=== PATIENT | male | born 1945 | race Caucasian/White ===

== ENCOUNTER → 2017-01-25 | Outpatient (CLI) | payer MEDICARE, OTHER ==
--- NOTE | 2017-01-25 15:38 | KCIC ---
PROCEDURE Two-view lumbar spine dated 01/25/2017. HISTORY Low back pain left leg pain weakness. TECHNIQUE AP and lateral views obtained. COMPARISON None. FINDINGS Five nonrib-bearing vertebral levels. Vertebral body heights are maintained. Sagittal alignment is anatomic. There is multilevel moderate to severe disc space narrowing. Moderate to severe arthrosis lower lumbar apophyseal joints. Moderate hypertrophic change of the superior and inferior endplates throughout. IMPRESSION - No acute radiographic abnormality. - Moderate to severe multilevel lumbar spondylosis. Electronically signed by: Josias Payton (Jan 25, 2017 15:37:41)
== END | disposition home or self-care (01) ==
LOC: KCIC 15:04
PROVIDERS: ATTEND Neurological Surgery
DX: M47.896 Other spondylosis, lumbar region (principal); M54.5 Low back pain; M79.605 Pain in left leg; Z91.81 History of falling; R53.1 Weakness
CPT/HCPCS: 72100

== ENCOUNTER → 2017-02-07 | Outpatient (CLI) | payer MEDICARE, OTHER ==
[~2017-02-07] MED LIST: AMLO5TAB2 PO; ASPI-482 PO; CHOL100017 PO; DOCU-27 PO; DOXA8TAB59 PO; DULO60CA6 PO; HYDR-2666 PO; HYDR25TA9 PO; LACT1CAP29 PO; LISI40TA PO; METF-620 PO; METH750T2 PO; OMEG10005 PO; OXYC1TAB7 PO
[2017-02-07 15:05] LABS: BASO % 1 % (0-3); EOS % 2 % (0-3); HEMATOCRIT 41.6 % (39.0-53.0); HEMOGLOBIN 13.6 g/dL (13.0-17.5); LYMPH # 1.5 x10^3/uL (1.0-4.8); LYMPH % 19 % (24-48); MEAN CORPUSCULAR HEMOGLOBIN 30 pg (25-35); MEAN CORPUSCULAR HGB CONC 33 g/dL (31-37); MEAN CORPUSCULAR VOLUME 92 fL (79-100); MONO % 8 % (0-9); NEUT % 70 % (31-73); PLATELET COUNT 250 x10^3/uL (140-400); RED BLOOD COUNT 4.51 x10^6/uL (4.30-5.70); RED CELL DISTRIBUTION WIDTH 14.5 % (11.5-14.5)
[2017-02-07 15:29] LABS: ALBUMIN 3.8 g/dL (3.4-5.0); ALBUMIN/GLOBULIN RATIO 1.2 (1.0-1.7); CALCIUM 9.4 mg/dL (8.5-10.1); CREATININE 1.2 mg/dL (0.7-1.3); GFR 59.3; POTASSIUM 4.7 mmol/L (3.5-5.1); TOTAL BILIRUBIN 0.4 mg/dL (0.2-1.0); TOTAL PROTEIN 7.1 g/dL (6.4-8.2)
--- NOTE | 2017-02-11 14:53 | HP ---
ADMIT DATE: DICTATED BY: Kalyan Burgess RN. DATE OF SURGERY: 02/16/2017 HISTORY OF PRESENT ILLNESS: The patient is a pleasant 71-year-old man who is having difficulty with low back pain and pain which radiates into his lower extremities as well as episodes of weakness and falling. He notes pain in the lower back which radiates into the anterior thighs. He notes numbness in both of his feet. He says his legs buckle, and he falls about once per week. He feels as though his left leg is in general weak and causing the falling. He states he has had back pain for about 15 years, and it became severe beginning in November 2016. Standing or twisting increases his pain. He takes Aleve and Powell. He has had epidural steroid injections in the past as well as physical therapy and chiropractic treatment none of which gave him long-lasting relief. He feels very unsteady, and he uses a walker. PAST MEDICAL HISTORY: Artificial joints and knees, prostate cancer, heart trouble or disease, cardiac bypass surgery, hypertension, radiation treatment, shingles, sleep apnea, and diabetes. PAST SURGICAL HISTORY: Heart catheterization in 2009, CABG x3 in 2009, left knee replacement in 2012, right knee replacement in 2014, and eye surgery in 2016. FAMILY HISTORY: Alzheimer's, diabetes, heart problems, and hypertension. SOCIAL HISTORY: Retired. . Exercises weekly. Denies substance abuse. Denies current tobacco use. Smoked 1 pack per day for 40 years, but quit greater than 10 years ago. Drinks alcohol one to two times per year. Drinks coffee daily. ALLERGIES: No known drug allergies. CURRENT MEDICATIONS: Metformin, vitamin D, aspirin, lisinopril, hydrochlorothiazide, Colace, probiotic, Aleve, [place], ____, amlodipine, doxazosin, and Cymbalta. REVIEW OF SYSTEMS: A 12-point review of systems was obtained and is noncontributory except for that mentioned above. PHYSICAL EXAMINATION: GENERAL APPEARANCE: Alert, pleasant, in no acute distress. HEAD: Normocephalic and atraumatic. SKIN: Warm and dry. MUSCULOSKELETAL: Lumbar paraspinal muscle bulk is normal, restricted range of motion of lumbar spine, [id number] tenderness of lower lumbar spine with palpation, and normal range of motion of the lower extremities bilaterally. EXTREMITIES: No clubbing, cyanosis, or edema. NEUROLOGIC: Alert and oriented x 3, normal recent and remote memory. Strength was 4+/5 hip flexors bilaterally, 4/5 left quadriceps, 4+/5 right quadriceps, plantar and dorsiflexion were 4+/5. Sensory was intact to light touch in bilateral lower extremities except for decreased involving the distal legs and feet bilaterally. Reflexes were trace at the knees and absent at the ankles bilaterally. Negative straight leg raising bilaterally, unsteady gait with the use of a walker. IMAGING REVIEWED: I reviewed a lumbar MRI scan. On that study, there is moderate stenosis at L1-L2, severe stenosis at L2-L3, severe stenosis at L3-L4, and severe stenosis at L4-L5. There is a small right synovial cyst present with some narrowing of the right side of his spinal canal at L5-S1. I also reviewed a thoracic MRI scan. The principal abnormality here is that at T11-T12, there is disk bulging, plus large left-sided synovial cyst which is associated with severe central canal stenosis. ASSESSMENT: He has multi-level disease and a synovial cyst at T10, T11, and T12. He is having difficulty ambulating. He is going to require surgery. I am obtaining plain lumbar spine films. Unfortunately, his thoracic MRI scan was not available for me to review today, so I am obtaining that study. I suspect he is going to require a left-sided approach at T11-T12 with removal of synovial cyst and decompression of the distal spinal cord. At L1-L2 through L4-L5, will require lumbar laminectomies. I suspect that my preference is going to be to perform a right direct approach and an indirect left decompression to try and preserve as much of this overall structure of the spinous possible. He does appear to have an element of degenerative scoliosis on the MRI scan. I will have plain films of lumbar spine performed to evaluate more. RAYMOND MEYER MD DR: ELEUTERIO/everardo JOB#: [id number] / [id number]
== END | disposition home or self-care (01) ==
LOC: SURGPAT 16:08
PROVIDERS: ATTEND Neurological Surgery
DX: Z01.812 Encounter for preprocedural laboratory examination (principal)
CPT/HCPCS: 36415; 80053; 83036; 85027; 87641

== ENCOUNTER → 2018-07-04 | Outpatient (CLI) | payer MEDICARE, OTHER ==
[2017-02-19 08:58] VITALS: BP 109/45
[~2018-07-04] MED LIST changes: -AMLO5TAB2 PO; +AMLO5TAB7 PO; +DOCU-109 PO; -DOCU-27 PO; -HYDR-2666 PO; +HYDR-2758 PO; +IOHEXOL 180 MG/ML 10 ML VIAL. ONE; +LIDOCAINE 2% PF 2ML VIAL. ONE; +LISI-130 PO; -LISI40TA PO; -METF-620 PO; +METF10007 PO; +[UNRECOGNIZED DRUG - OTHER]; +methylPREDNISolone ACETATE 40 MG/ML VIAL. ONE; +methylPREDNISolone ACETATE 80 MG/ML VIAL. ONE
--- NOTE | 2018-07-04 12:51 | PAIN ---
DATE OF SERVICE: 07/04/2018 CHIEF COMPLAINT: Low back pain. HISTORY OF PRESENT ILLNESS: This is a 73-year-old male who presents with history of pain in the low back for about a year and a half. The patient has had lumbar laminectomy as well as thoracic laminectomy for synovial cyst and is trying to avoid further surgery. The patient reports significant pain in the low back itself, some radiation into the bilateral lower extremities, mostly in the lateral and posterior aspects of the hip and thighs, but the patient reports they can be significantly enough to where he will actually fall down from the pain and has some fatigability in bilateral lower extremities with walking more than about 10-15 minutes. The patient reports the pain is becoming more constant, sharp, throbbing, aching, tingling in some aspects of the back, cramping and burning, worse with walking, worse with standing, better with sitting or lying down, does not awaken him from sleep significantly, does not affect his bowel or bladder control, does affect his ability to walk significantly. He usually uses a cane and holds it in his right hand. The patient is taking hydrocodone as well, which does help by about 50%. The patient has had physical therapy, counseling, chiropractic treatment as well as doing exercises and continues to do the exercises and therapies at this time. No other modalities have been performed currently. The patient did have an MRI scan of the lumbar spine dated 06/09/2018 showing postoperative changes with multilevel central and neural foraminal stenosis at L2-L3, L3-L4, L4-L5 and L5-S1. L4-L5 shows persistent severe central stenosis with a broad-based disk osteophyte complex and severe bilateral neural foraminal stenosis persisting as well with previous right hemilaminectomy changes. The patient reports a disability rate from 0-10, 10 being the worst, as a 9 with recreation and occupation, 7 with social activity, 6 with sexual behavior, 2 with self-care and 1 with life support activities. The patient reports no complete loss of motor function, but again significant fatigability of lower extremities with walking. PAST MEDICAL HISTORY: Significant for type 2 diabetes, hypertension, arthritis, peripheral neuropathy from the diabetes. PAST SURGICAL HISTORY: Includes lumbar laminectomy in 02/2017, coronary artery bypass graft in 2009, right knee replaced in 2014, left knee in 2012 and cataract extractions bilaterally. CURRENT MEDICATIONS: Include Aleve, amlodipine, doxazosin, Cymbalta, omega XL, Colax probiotic, hydrochlorothiazide, lisinopril, metformin, vitamin D, baby aspirin daily. ALLERGIES: No known drug allergies. FAMILY HISTORY: Significant for diabetes. SOCIAL HISTORY: The patient does not drink alcohol, does not smoke, does not use any illegal, illicit or recreational drugs. He is and lives with his spouse. 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 REVIEW OF SYSTEMS: The patient's review of systems is positive for those items mentioned in history of present illness. All systems reviewed and otherwise negative. It is complete, full, well documented on the patient's chart. PHYSICAL EXAMINATION: VITAL SIGNS: The patient's blood pressure is 138/49, pulse 58, respirations 18, temperature 97.9 degrees Fahrenheit, height is 5 feet 10 inches, weight is 297 pounds. GENERAL: The patient is awake, alert, oriented, appropriate, very pleasant demeanor. HEENT: Head is normocephalic, atraumatic. Extraocular movements are intact, symmetrical. Oral cavity: Mucous membranes moist and pink. Dentition is intact. NECK: Shows anterior throat supple without palpable lymphadenopathy noted. Swallow reflex is symmetrical. CHEST: Shows normal on inspection. Breath sounds clear to auscultation bilaterally. HEART: Shows S1, S2 clear. No murmurs auscultated. ABDOMEN: Obese, soft, nontender, nondistended. No palpable organomegaly is noted. No rebound or guarding demonstrated. BACK: Shows spine grossly in the midline, normal appearing thoracic kyphosis and some flattening of lumbar lordotic curvature with well-healed surgical scarring from the thoracic into the lumbar distribution in the midline. Paraspinous muscles show symmetrical on inspection throughout the thoracic and lumbar distributions. With palpation show some moderate tenderness bilaterally throughout the lower thoracic distribution in the upper, middle and lower distribution of paraspinous muscles, but only diffusely without radiation. No tenderness over the spinous processes, sacrum or sacroiliac regions. The patient has good rotational motion of lumbar spine, both laterally greater than 10 degrees right and left as well as extension greater than 10 degrees, forward flexion 45 degrees without significant pain reported. EXTREMITIES: Lower extremities show deep tendon reflexes at 1+ in the patellar and tendo-calcaneus tendons. Motor exam is approximately 4 on a scale of 5 and equal and symmetrical dorsiflexion, extension, quadriceps and hamstring flexion. Peripheral pulses are 1+ posterior tibial. No peripheral edema is noted. Lower extremities are warm and dry to touch, equal in color and appearance. Straight leg raise noted to be negative bilaterally. Gaenslen's and Daron maneuvers are negative bilaterally as well. SKIN: The patient's skin is warm and dry, good turgor. No edema. No sores or rashes. NEUROLOGIC: The patient's ability to stand is slightly hesitant from a sitting position, but the patient performs this with the help of the arms of the chair, walks with a slight shuffling gait, does not appear to favor the right or left lower extremity significantly and again has a cane in his right hand, which he is using to ambulate. IMPRESSION: 1. This is a 73-year-old male with about one year history of increasing pain, low back bilaterally, some into the lower extremities in a radicular fashion as well. 2. MRI scan of the lumbar spine as noted. 3. Type 2 diabetes. 4. Hypertension. 5. Arthritis. PLAN: Options were discussed with the patient including conservative medical management, physical therapy, and interventional techniques. He would like to pursue interventional techniques. We discussed a lumbar epidural steroid injection using description as well as anatomical models to describe the procedure. Risks were then discussed including, but not limited to bleeding, infection, possibility of epidural hematoma and subsequent neurological compromise, dural puncture headaches, spinal cord and/or nerve damage, side effects of steroid medication and poor results regarding pain control. The patient understands and wished to proceed. The patient will return to clinic in approximately 2 weeks for followup. He was counseled as to return appointment, activity level and side effects to be aware of. DIAGNOSES: Lumbar radiculopathy with lumbar spinal stenosis, lumbar degenerative disk disease and post-lumbar laminectomy syndrome. PROCEDURE: Lumbar epidural steroid injection, translaminar approach L4-L5 level using C-arm fluoroscopic guidance under sterile prep and drape using local anesthetic. MEDICATION INJECTED: A total of 120 mg Depo-Medrol plus 10 mL of preservative-free normal saline, 2 mL of Isovue for contrast. CONDITION AT DISCHARGE: Stable. The patient tolerated the procedure well with no complications. RENNY HCAHAL MD DR: EFRAIN/everardo JOB#: [id number] / [id number]
== END | disposition home or self-care (01) ==
LOC: PNCL 08:36
PROVIDERS: ATTEND Anesthesiology
DX: M51.16 Intervertebral disc disorders with radiculopathy, lumbar region (principal); M48.061 Spinal stenosis, lumbar region without neurogenic claudication; M96.1 Postlaminectomy syndrome, not elsewhere classified; I10 Essential (primary) hypertension; M19.90 Unspecified osteoarthritis, unspecified site; E11.42 Type 2 diabetes mellitus with diabetic polyneuropathy; Z95.1 Presence of aortocoronary bypass graft; Z98.890 Other specified postprocedural states; Z96.651 Presence of right artificial knee joint; Z98.42 Cataract extraction status, left eye; Z98.41 Cataract extraction status, right eye; Z96.1 Presence of intraocular lens; Z79.82 Long term (current) use of aspirin; Z79.899 Other long term (current) drug therapy; Z79.84 Long term (current) use of oral hypoglycemic drugs; Z83.3 Family history of diabetes mellitus
CPT/HCPCS: 62323; J1030; J1040; J2001; Q9965

== ENCOUNTER → 2018-07-18 | Outpatient (CLI) | payer MEDICARE, OTHER ==
[2017-02-19 08:58] VITALS: BP 109/45
--- NOTE | 2018-07-18 21:20 | PAIN ---
DATE OF SERVICE: 07/18/2018 PROGRESS NOTE FOR PAIN CLINIC DIAGNOSES: Lumbar radiculopathy with lumbar spinal stenosis, lumber degenerative disk disease and post-lumbar laminectomy syndrome. HISTORY OF PRESENT ILLNESS: The patient is a 73-year-old male who returns for followup status post lumbar epidural steroid injection x 1. The patient reports about 50% improvement overall. The first week was about 80% improvement and the second week became more noticeable with the pain returning in the low back and bilateral lower extremities. The patient reports still doing much better, about 50% improvement overall. The patient reports he has been increasing his activity, walking greater distances, doing household activities with greater ease and comfort and traveling with greater ease, riding in a car. The patient reports his pain is 8 on a scale 10 at its worst, 5-7 on average, 4 at its least and is a 4 today. The patient reports it is aching, dull, tight, becoming more constant over the last week and more severe at times but usually with extended standing or walking. The patient reports it does not awaken him from sleep at night. No new bowel or bladder incontinence or other complaints. PHYSICAL EXAMINATION: VITAL SIGNS: Today, the patient's blood pressure is 162/61, pulse 62, respirations 18, temperature 98.0 degrees Fahrenheit, height is 5 feet 10 inches and weight is 293 pounds. GENERAL: The patient is awake, alert, oriented, appropriate and very pleasant demeanor. HEENT: Head shows normocephalic and atraumatic. Extraocular movements are intact and symmetrical. Oral cavity: Mucous membranes are moist and pink. Dentition intact. NECK: Supple, without palpable lymphadenopathy noted. Swallow reflex is symmetrical. CHEST: Shows normal on inspection. Breath sounds are clear to auscultation bilaterally. HEART: Shows S1 and S2 clear. No murmurs auscultated. ABDOMEN: Obese, soft, nontender and nondistended. No palpable organomegaly is noted. No rebound or guarding demonstrated. BACK: Shows spine grossly in the midline. Normal-appearing thoracic kyphosis and some minor flattening lumbar lordotic curvature. Lumbar paraspinal muscle shows symmetrical on inspection and palpation shows some moderate tenderness diffusely but only diffusely bilaterally without radiation. No tenderness over the sacrum and sacroiliac regions. The patient has good rotational motion of the lumbar spine, both laterally as well as extension and flexion without difficulty. EXTREMITIES: The patient's lower extremities show deep tendon reflexes at 1+ in the patella and tendo-calcaneus tendons and equal. Motor exam is approximately 4 on a scale skin 5 with dorsiflexion and extension but symmetrical right and left. Peripheral pulses are 1+ posterior tibia. No peripheral edema is noted. Options were discussed with the patient. The patient's old chart was reviewed as well as his current medications updated. Current review of systems updated today as well. We will proceed with a second lumbar epidural steroid injection today with fluoroscopic guidance. Risks were again discussed including, but not limited to bleeding, infection, possibility of epidural hematoma and subsequent neurological compromise, dural puncture, headaches, spinal cord and/or nerve damage, side effects of steroid medication and poor results regarding pain control. The patient understands and wished to proceed. The patient will return to the clinic in approximately 2 weeks for follow, was counseled as to return appointment, activity level and side effects to be aware of. DIAGNOSES: Lumbar radiculopathy with lumbar spinal stenosis, lumbar degenerative disk disease and post-lumbar laminectomy syndrome. PROCEDURE: Lumbar epidural steroid injection, translaminar approach, L4-L5 level using C-arm fluoroscopic guidance under sterile prep and drape using local anesthetic. MEDICATION INJECTED: A total of 120 mg Depo-Medrol plus 10 mL of preservative-free normal saline and 2 mL of Isovue for contrast. CONDITION AT DISCHARGE: Stable. The patient tolerated the procedure well and had no complications. RENNY CHAHAL MD DR: EFRAIN/everardo JOB#: [id number] / [id number]
== END | disposition home or self-care (01) ==
LOC: PNCL 08:03
PROVIDERS: ATTEND Anesthesiology
DX: M51.16 Intervertebral disc disorders with radiculopathy, lumbar region (principal); M48.061 Spinal stenosis, lumbar region without neurogenic claudication; M96.1 Postlaminectomy syndrome, not elsewhere classified
CPT/HCPCS: 62323; J1030; J1040; J2001; Q9965

== ENCOUNTER → 2018-08-01 | Outpatient (CLI) | payer MEDICARE, OTHER ==
[2017-02-19 08:58] VITALS: BP 109/45
[~2018-08-01] MED LIST changes: +LIDOCAINE 1% PF 2 ML VIAL. ONE; -LIDOCAINE 2% PF 2ML VIAL. ONE
--- NOTE | 2018-08-01 13:11 | PAIN ---
DATE OF SERVICE: 08/01/2018 DIAGNOSES: Lumbar radiculopathy with lumbar spinal stenosis, lumbar degenerative disk disease and post-lumbar laminectomy syndrome. HISTORY OF PRESENT ILLNESS: The patient is a 73-year-old male who returns for followup status post lumbar epidural steroid injection x 2. The patient reports about 50% improvement overall. Some days, he has more like a 100% improvement. The patient reports some days better than others. Some days, he has had a lot of pain in his low back and bilateral lower extremities, mostly in the lateral anterior thighs and lateral posterior gluteus. The patient reports otherwise he feels he is doing fairly well overall and is pleased with his progress with about a 50% improvement in the overall scheme . The patient reports it is better with sitting or lying down, worse with walking, and he was increasing his walking after last injection, was increasing activities around the house as well as traveling with greater ease and comfort. The patient reports when he lies down, the pain is essentially gone. He is sleeping well, does not awaken him from sleep. The patient rates his pain as an 8 on a scale of 10 at its worst, 6 on average, 2 at its least and is a 6 today. The patient reports it is aching, dull, tight, on and off in intensity, again worse with walking and standing. No new motor or sensory deficits, no new bowel or bladder incontinence or other complaints. PHYSICAL EXAMINATION: VITAL SIGNS: The patient's blood pressure 136/61, pulse 64, respirations 18, temperature 98.0 degrees Fahrenheit, weight is 285 pounds. GENERAL: The patient is awake, alert, oriented, appropriate, very pleasant demeanor. HEENT: Head shows normocephalic, atraumatic. Extraocular movements are intact and symmetrical. Oral cavity: Mucous membranes moist and pink. Dentition is intact. NECK: Shows anterior throat supple without palpable lymphadenopathy noted. Swallow reflex symmetrical. CHEST: Shows normal with inspection. Breath sounds clear to auscultation bilaterally. HEART: Shows S1, S2 clear. No murmurs auscultated. ABDOMEN: Soft, obese, nontender, nondistended. No palpable organomegaly is noted. No rebound or guarding demonstrated. BACK: Shows spine grossly in the midline. I appreciate normal cervical lordotic curvature, slight increase in thoracic kyphotic curvature, some mild flattening of lumbar lordotic curvature. Lumbar paraspinous muscle shows symmetrical on inspection and palpation shows some moderate tenderness, but only diffusely throughout the middle and lower distribution of paraspinous musculature in the lumbar distribution without radiation, without atrophy or hypertrophy, no trigger points, no tenderness over the sacrum or sacroiliac regions. The patient has good rotational motion of lumbar spine, both laterally as well as extension and flexion without significant difficulty. EXTREMITIES: Lower extremities show deep tendon reflexes at 1+ in the patellar and tendo calcaneus tendons. Motor exam is strong with approximately 4 on a scale 5 and equal and symmetrical with dorsiflexion, extension, quadriceps and hamstring flexion. Peripheral pulses are 1+ posterior tibia. No peripheral edema is noted bilaterally. Options were discussed with the patient. The patient's old chart was reviewed, as his current medication regimen updated. Current review of systems updated today as well. We will proceed with a third in the series of lumbar epidural steroid injection today with fluoroscopic guidance. Risks were again discussed including, but not limited to bleeding, infection, possibility of epidural hematoma, subsequent neurological compromise, dural puncture, headaches, spinal cord and/or nerve damage, side effects of steroid medication and poor results regarding pain control. The patient understands and wished to proceed. The patient to return to clinic in approximately 2 weeks for followup, was counseled on return appointment, activity level and side effects to be aware of. DIAGNOSES: Lumbar radiculopathy with lumbar spinal stenosis, lumbar degenerative disk disease and post-lumbar laminectomy syndrome. PROCEDURE: Lumbar epidural steroid injection, translaminar approach L4-L5 level using C-arm fluoroscopic guidance with sterile prep and drape using local anesthetic. MEDICATION INJECTED: A total of 120 mg Depo-Medrol, plus 10 mL of preservative-free normal saline and 2 mL of Isovue for contrast. CONDITION AT DISCHARGE: Stable. The patient tolerated procedure well, had no complications. RENNY CHAHAL MD DR: EFRAIN/everardo JOB#: [id number] / [id number]
== END | disposition home or self-care (01) ==
LOC: PNCL 08:45
PROVIDERS: ATTEND Anesthesiology
DX: M51.16 Intervertebral disc disorders with radiculopathy, lumbar region (principal); M48.061 Spinal stenosis, lumbar region without neurogenic claudication; M96.1 Postlaminectomy syndrome, not elsewhere classified
CPT/HCPCS: 62323; J1030; J1040; Q9965

== ENCOUNTER → 2019-01-04 | Outpatient (CLI) | payer MEDICARE, OTHER ==
[2017-02-19 08:58] VITALS: BP 109/45
[~2019-01-04] MED LIST changes: +AMLO5TAB10 PO; -AMLO5TAB7 PO; +ATOR20TA58 PO; +CYAN250012 PO; +EZET10TA18 PO; +HYDR-2145 PO; -HYDR-2758 PO; +HYDR-2761 PO; -HYDR25TA9 PO; -IOHEXOL 180 MG/ML 10 ML VIAL. ONE; -LIDOCAINE 1% PF 2 ML VIAL. ONE; +MAGN400T3 PO; +POLY119P4 PO; +PREG50CA PO; +TRAM50TA PO; -methylPREDNISolone ACETATE 40 MG/ML VIAL. ONE; -methylPREDNISolone ACETATE 80 MG/ML VIAL. ONE
--- NOTE | 2019-01-04 14:17 | RAD ---
CHEST PA LATERAL CLINICAL INDICATION: PRE-OP CHEST BACK SURGERY COMPARISON: None FINDINGS: CABG changes noted. Heart is normal in size. Lungs are clear. No pneumothorax or effusion. Multilevel degenerative disease is seen in the spine. IMPRESSION: No acute pulmonary process. Electronically signed by: Obed Johnston DO (01/04/2019 2:09 PM) [facility]
[2019-01-04 14:35] LABS: BASO % 1 % (0-3); EOS # 0.2 x10^3/uL (0.0-0.7); EOS % 4 % (0-3); HEMATOCRIT 39.8 % (39.0-53.0); LYMPH # 1.5 x10^3/uL (1.0-4.8); LYMPH % 22 % (24-48); MEAN CORPUSCULAR HEMOGLOBIN 30 pg (25-35); MEAN CORPUSCULAR HGB CONC 33 g/dL (31-37); MEAN CORPUSCULAR VOLUME 92 fL (79-100); MONO # 0.6 x10^3/uL (0.0-1.1); MONO % 8 % (0-9); NEUT # 4.6 x10^3uL (1.8-7.7); NEUT % 66 % (31-73); PLATELET COUNT 254 x10^3/uL (140-400); RED BLOOD COUNT 4.32 x10^6/uL (4.30-5.70); RED CELL DISTRIBUTION WIDTH 14.3 % (11.5-14.5)
[2019-01-04 14:52] LABS: ALBUMIN 3.8 g/dL (3.4-5.0); ALBUMIN/GLOBULIN RATIO 1.2 (1.0-1.7); CALCIUM 9.4 mg/dL (8.5-10.1); GFR 72.8; POTASSIUM 4.4 mmol/L (3.5-5.1); TOTAL BILIRUBIN 0.5 mg/dL (0.2-1.0)
== END | disposition home or self-care (01) ==
LOC: SURGPAT 13:27
PROVIDERS: ATTEND Neurological Surgery
DX: M48.061 Spinal stenosis, lumbar region without neurogenic claudication (principal); M54.16 Radiculopathy, lumbar region; Z88.0 Allergy status to penicillin; Z95.1 Presence of aortocoronary bypass graft
CPT/HCPCS: 36415; 71046; 80053; 85025; 87641

== ENCOUNTER 2019-01-10 09:51 | Inpatient (IN) | payer MEDICARE, OTHER ==
--- NOTE | 2019-01-09 18:49 | PREOP HP ---
DATE OF SERVICE: 01/10/2019. ANTICIPATED DATE OF SURGERY: 01/10/2019. HISTORY OF PRESENT ILLNESS: The patient is a pleasant 73-year-old who I last saw in August. At that time, he was having difficulty with unsteadiness and left ankle pain, but overall he felt he was stable and basically getting along okay. He returns today after noticing significant increase in his lower extremity weakness. He says he has low back pain and leg weakness with standing and walking, which can cause him to fall. He recently saw a neurologist, who he thought had diabetic neuropathy as well as cervical spinal stenosis in addition to his other spinal stenosis. He says that the problem really became severe in October. Standing makes his back pain and leg weakness worse. Sitting helps him. He had physical therapy, which gave him no lasting relief. He does use a walker, which gives stability with walking. PAST MEDICAL HISTORY: Artificial knees, prostate cancer, heart bypass, hypertension, radiation treatment, shingles, sleep apnea, and diabetes. PAST SURGICAL HISTORY: CABG in 2009, left knee replacement in 2012, right knee replacement in 2014, removal of synovial cyst at T11-T12, lumbar decompression of L1-L5 in 02/2017. FAMILY HISTORY: Alzheimer's, diabetes, heart problems and disease, hypertension. SOCIAL HISTORY: Retired. . Exercises weekly, denies substance abuse. Smoked 1 pack per day for 40 years, but quit greater than 10 years ago. Drinks alcohol 1-2 times per year. Drinks coffee daily. ALLERGIES: PENICILLIN. CURRENT MEDICATIONS: Vitamin D, metformin, lisinopril, aspirin, hydrochlorothiazide, Colace, probiotic, amlodipine, doxazosin, Cymbalta, tramadol. REVIEW OF SYSTEMS: A 12-point review of systems was obtained and is noncontributory except for that mentioned above. PHYSICAL EXAMINATION: NEUROSURGERY EXAMINATION: GENERAL APPEARANCE: Alert, pleasant, in no acute distress. HEAD: Normocephalic and atraumatic. SKIN: Warm and dry. MUSCULOSKELETAL: Cervical, thoracic, and lumbar paraspinal muscle bulk is normal, cervical and lumbar range of motion is restricted, normal range of motion of the lower extremities and upper extremities bilaterally. EXTREMITIES: No clubbing, cyanosis, or edema. NEUROLOGIC: Alert and oriented x 3, normal recent and remote memory, strength 5/5 in bilateral upper extremities, strength 4/5 in the lower extremities bilaterally. Sensory was intact to light touch in the upper extremities. In the lower extremities, there is a stocking glove sensory loss beginning mid leg and extending distally, reflexes were trace and symmetric in the upper and lower extremities bilaterally, unsteady gait. IMAGING: Reviewed. I reviewed a cervical MRI scan. On that study, there is multilevel cervical spinal stenosis, which is most severe at C5-C6 with a 5 mm canal. At C3-C4 and C4-C5, the canal measures 6-7 mm. I also reviewed a lumbar MRI scan from 06/09/2018. On that study, there was moderate spinal canal stenosis at L2-L3 and L3-L4. There was severe stenosis at L4-L5. I also reviewed a thoracic MRI scan from 05/2018. On that study, there was recurrence of the synovial cyst at T11-T12 with moderately severe stenosis at that level. ASSESSMENT/ PLAN: The patient has worsened significantly since I saw him last. He is having more difficulty with ambulation. He is having multilevel problems with stenosis involving both the cervical and thoracic spine as well as the lumbar spine. Most of his problems are in the lumbar spine, and at this point, my recommendation is to address the lumbar spine first with a wide laminectomy and see if it will give him some relief. I would follow that with a cervical decompressive surgery. After that depending on his progress, another operation to remove the synovial cyst of the spinal canal in the lower thoracic region would be contemplated. I discussed all this with him and his family. I outlined the problems in all directions. I feel the problems are multifactorial, he is slowly worsening and that surgery should be performed. He understands. He would like to go ahead. We will make the arrangements. RAYMOND MEYER MD DR: ELEUTERIO/everardo JOB#: [id number] / [id number] MANOLO
[~2019-01-10] VITALS: Ht 177.8 cm; Wt 129.3 kg
[2019-01-10] VITALS (8 sets, daily range): BP systolic 112–131; BP diastolic 52–67
[~2019-01-10 09:51] MED LIST changes: +BACITRACIN 50,000 UNIT in IV NORMAL SALINE 1000ML BAG 1,000 ML IRR ONE; +BUPIVAC MPF-EPI 0.5%-1:200000 30 ML VIAL. ONE; -DOXA8TAB59 PO; +GELATIN SPONGE SIZE 100. ONE; -HYDR-2145 PO; +HYDROmorphone 2 MG/ML VIAL IV PRN; +IV RINGERS,LACTATED 1000ML 1,000 ML IV SCH; +KETOROLAC 60 MG/2 ML INJ FOR OR. ONE; +MORPHINE SULFATE 2 MG/ML VIAL. IV PRN; +ONDANSETRON PF 4 MG/2 ML VIAL. IV PRN; -PREG50CA PO; +PROCHLORPERAZINE 10 MG/2 ML VIAL. IV PRN; +PROPOFOL 100 ML IV ONE; +THROMBIN TOPICAL 20,000 UNIT SPRAY.SYRN KIT TP ONE; -TRAM50TA PO; +VANCOMYCIN 1GM IVPB FOR OMNI 250 ML IV PRN; +fentaNYL PF VIAL 100 MCG/2 ML VIAL IV PRN
[2019-01-10] MEDS ORDERED: ONDANSETRON PF 4 MG/2 ML VIAL. ONE (10:25)
[2019-01-10] MEDS ORDERED: DEXAMETHASONE SOD PHOS 20 MG/5 ML VIAL. ONE ×2 (10:25→12:08)
[2019-01-10] MEDS ORDERED: ROCURONIUM 50 MG/5 ML VIAL. ONE (10:25)
[2019-01-10] MEDS ORDERED: PROPOFOL 20 ML IV ONE ×2 (10:25→15:40)
[2019-01-10] MEDS ORDERED: LIDOCAINE 2% PF 5 ML VIAL. ONE (10:25)
[2019-01-10] MEDS ORDERED: REMIFENTANIL 2 MG VIAL. IV ONE ×2 (10:26→14:14)
[2019-01-10] MEDS ORDERED: GLYCOPYRROLATE 1 MG/5 ML VIAL. ONE (10:44)
[2019-01-10] MEDS ORDERED: DESFLURANE > 120 MINUTES IH ONE (10:44)
[2019-01-10] MEDS ORDERED: PHENYLEPHRINE 10 MG/ML VIAL. ONE ×2 (10:45→13:39)
[2019-01-10] MEDS ORDERED: MIDAZOLAM HCL/PF 2 MG/2 ML VIAL. ONE (11:37)
[2019-01-10] MEDS ORDERED: ePHEDrine PF IN SALINE 50 MG/10 ML SYRINGE. IV ONE (12:05)
[2019-01-10] MEDS ORDERED: EPINEPHrine SYRINGE 1 MG/10 ML SYRINGE ONE (12:21)
[2019-01-10] MEDS ORDERED: PROPOFOL 0 ML IV ONE (14:44)
[2019-01-10] MEDS ORDERED: PROPOFOL 50 ML IV ONE (16:02)
[2019-01-10] MEDS ORDERED: KETOROLAC 30 MG/ML INJ FOR OR. INJ ONE (16:46)
[2019-01-10] MEDS ORDERED: fentaNYL PF VIAL 100 MCG/2 ML VIAL ONE ×3 (16:48→18:14)
[2019-01-10] MEDS ORDERED: REMIFENTANIL 1 MG VIAL. IV ONE (16:55)
[2019-01-10] MEDS ORDERED: MAGNESIUM HYDROXIDE 2,400 MG/30 ML ORAL.SUSP. PO PRN (17:00)
[2019-01-10] MEDS ORDERED: diphenhydrAMINE HCL 25 MG CAPSULE PO PRN (17:00)
[2019-01-10] MEDS ORDERED: NALOXONE 0.4 MG/ML VIAL. IV PRN (17:00)
[2019-01-10] MEDS ORDERED: CALCIUM CARBONATE 500 MG TAB.CHEW PO PRN (17:00)
[2019-01-10] MEDS ORDERED: ACETAMINOPHEN 325 MG TABLET. PO PRN (17:00)
[2019-01-10] MEDS ORDERED: fentaNYL PF VIAL 100 MCG/2 ML VIAL IV PRN (17:00)
[2019-01-10] MEDS ORDERED: oxyCODONE/APAP 5/325 1 TAB TABLET PO PRN ×2 (17:00)
[2019-01-10] MEDS ORDERED: MAG HYDROX/ALUMINUM HYD/SIMETH 30 ML ORAL.SUSP PO PRN (17:00)
[2019-01-10] MEDS ORDERED: 0.9 % SODIUM CHLORIDE 10 ML DISP.SYRIN. IV PRN (17:00)
[2019-01-10] MEDS: fentaNYL PF VIAL 100 MCG/2 ML VIAL IV PRN ×3 (17:50→18:30)
--- NOTE | 2019-01-10 18:30 | NUR ---
received from pacu. Kris is alert and oriented with several family members at bedside. IV infusing in left hand. states he is hungry; meal ordered.
[2019-01-10] MEDS: POTASSIUM CL 20MEQ-0.45% NACL 1,000 ML IV SCH (19:00)
[2019-01-10] MEDS: ATORVASTATIN CALCIUM 20 MG TABLET PO SCH (20:36)
[2019-01-10] MEDS: METHOCARBAMOL 750 MG TABLET PO SCH (20:36)
[2019-01-10] MEDS: DOCUSATE SODIUM 100 MG CAPSULE. PO SCH (20:37)
[2019-01-10] MEDS: LACTOBACILLUS RHAMNOSUS GG 1 CAPSULE. PO SCH (20:37)
[2019-01-10] MEDS: OMEGA-3 FATTY ACIDS/FISH OIL 1,000 MG CAPSULE. PO SCH (20:37)
[2019-01-10] MEDS: DOXAZOSIN MESYLATE 4 MG TABLET. PO SCH (20:38)
--- NOTE | 2019-01-11 01:15 | NUR ---
BERRY drain leaked on bedding/gown, bedding and gown changed. Patient has not voided yet and stated "I don't have to go yet." RN informed patient that if unable to void in an hour we would scan the bladder and possibly have to use a straight catheter to empty his bladder. Patient verbalized understanding. Call light and urinal in reach. Will monitor.
--- NOTE | 2019-01-11 02:15 | NUR ---
Patient has not voided yet. Bladder scan revealed >453cc. Patient denies urge to void or any discomfort. Per bladder scan protocol will wait 2 hours and reassess bladder scan and follow protocol instructions. If Patient becomes uncomfortable prior to 2 hours will scan and straight cath. PRN. Call light and urinal in reach.
[2019-01-11 03:23] VITALS: BP 125/81
--- NOTE | 2019-01-11 04:35 | NUR ---
At 0415 patient had not voided. Bladder scan revealed >599 cc. Straight catheter placed using sterile technique post explanation to Patient. 500 cc clear yellow urine drained. Patient tolerated procedure without complaints. Bladder scan done post straight catheter drained revealed 55cc.
[2019-01-11] MEDS: POTASSIUM CL 20MEQ-0.45% NACL 1,000 ML IV SCH (06:29)
[2019-01-11] MEDS: DOCUSATE SODIUM 100 MG CAPSULE. PO SCH ×2 (08:18→20:32)
[2019-01-11] MEDS: CYANOCOBALAMIN (VITAMIN B-12) 1,000 MCG TABLET. PO SCH (08:18)
[2019-01-11] MEDS: metFORMIN 500 MG TABLET PO SCH ×2 (08:18→17:00)
[2019-01-11] MEDS: POLYETHYLENE GLYCOL 3350 17 GM PACKET. PO SCH (08:18)
[2019-01-11] MEDS: LACTOBACILLUS RHAMNOSUS GG 1 CAPSULE. PO SCH ×2 (08:19→20:32)
[2019-01-11] MEDS: OMEGA-3 FATTY ACIDS/FISH OIL 1,000 MG CAPSULE. PO SCH ×2 (08:19→20:32)
[2019-01-11] MEDS: METHOCARBAMOL 750 MG TABLET PO SCH ×3 (08:19→20:32)
[2019-01-11] MEDS: EZETIMIBE 10 MG TABLET. PO SCH (08:19)
[2019-01-11] MEDS: ASPIRIN ENTERIC COATED 81 MG TABLET.DR. PO SCH (08:19)
[2019-01-11] MEDS: MAGNESIUM OXIDE 400 MG TABLET PO SCH (08:19)
[2019-01-11 08:20] VITALS: BP 120/50
[2019-01-11] MEDS: CHOLECALCIFEROL (VITAMIN D3) 5,000 UNIT CAPSULE PO SCH (08:20)
[2019-01-11] MEDS: DOXAZOSIN MESYLATE 4 MG TABLET. PO SCH ×2 (08:20→20:32)
[2019-01-11] MEDS: DULoxetine HCL 30 MG CAPSULE.DR PO SCH (08:20)
[2019-01-11] MEDS: amLODIPine BESYLATE 5 MG TABLET PO SCH (08:21)
[2019-01-11] MEDS: hydroCHLOROthiazide 25 MG TABLET PO SCH (08:21)
[2019-01-11] MEDS: LISINOPRIL 20 MG TABLET PO SCH (08:22)
--- NOTE | 2019-01-11 09:05 | NUR ---
Unable to urinate, feels no sensation, bladder scanned, little or no urine noted in bladder, continues to drink plenty of fluids, will continue to monitor/observe
--- NOTE | 2019-01-11 10:14 | PDOC ---
PROGRESS NOTES Subjective Subjective He was straight catheterized last night for urinary retention. Objective Objective Vital Signs Date Time Temp Pulse Resp B/P (MAP) Pulse Ox O2 Delivery O2 Flow Rate FiO2 01/11/19 09:43 Room Air 01/11/19 08:22 60 120/50 01/11/19 03:23 98.9 16 95 98.9 01/10/19 22:15 2.0 Intake and Output 01/11/19 06:59 Intake Total 3450 ml Output Total 2070 ml Balance 1380 ml Intake Oral 2100 ml IV Total 1350 ml Output Urine Total 1400 ml Drainage Total 270 ml Estimated Blood Loss 400 ml Physical Exam Physical Exam He is independent with his bed mobility,transfers and walking with roller walker. He has seen in the past. Plan Plan of Care To ask to see him for follow up about urinary retention. If he is emptying his bladder good,home with out patient follow up. Comment Review of Relevant I have reviewed the following items sebas (where applicable) has been applied. Labs Laboratory Tests Test 01/10/19 13:47 01/10/19 18:01 01/10/19 20:42 01/11/19 06:14 Glucose (Fingerstick) 98 mg/dL (70-99) 141 mg/dL (70-99) 195 mg/dL (70-99) 116 mg/dL (70-99) Laboratory Tests Test 01/10/19 13:47 01/10/19 18:01 01/10/19 20:42 01/11/19 06:14 Glucose (Fingerstick) 98 mg/dL (70-99) 141 mg/dL (70-99) 195 mg/dL (70-99) 116 mg/dL (70-99) Medications Current Medications Bacitracin 95519 unit/Sodium Chloride 1,000 ml @ 1,000 mls/hr 1X ONCE IRR Last administered on 01/10/19at 12:52; Start 01/10/19 at 06:00; Stop 01/10/19 at 06:59; Status DC Vancomycin HCl 250 ml @ 250 mls/hr 1X PREOP PRN IV PRIOR TO PROCEDURE Last administered on 01/10/19at 11:55; Start 01/10/19 at 06:00; Stop 01/10/19 at 18:00 ; Status DC Ondansetron HCl (Zofran) 4 mg PRN Q6HRS PRN IV NAUSEA/VOMITING; Start 01/10/19 at 07:00; Stop 01/11/19 at 06:59; Status DC Fentanyl Citrate (Fentanyl 2ml Vial) 25 mcg PRN Q5MIN PRN IV MILD PAIN; Start 01/10/19 at 07:00; Stop 01/11/19 at 06:59; Status DC Fentanyl Citrate (Fentanyl 2ml Vial) 50 mcg PRN Q5MIN PRN IV MODERATE TO SEVERE PAIN Last administered on 01/10/19at 18:30; Start 01/10/19 at 07:00; Stop 01/11/19 at 06:59; Status DC Morphine Sulfate (Morphine Sulfate) 1 mg PRN Q10MIN PRN IV SEVERE PAIN; Start 01/10/19 at 07:00; Stop 01/11/19 at 06:59; Status DC Ringer's Solution 1,000 ml @ 30 mls/hr Q24H IV Last administered on 01/10/19at 10:42; Start 01/10/19 at 07:00; Stop 01/10/19 at 18:59; Status DC Hydromorphone HCl (Dilaudid) 0.5 mg PRN Q10MIN PRN IV SEV PAIN, Second choice; Start 01/10/19 at 07:00; Stop 01/11/19 at 06:59; Status DC Prochlorperazine Edisylate (Compazine) 5 mg PACU PRN PRN IV NAUSEA, MRX1; Start 01/10/19 at 07:00; Stop 01/11/19 at 06:59; Status DC Gelatin (Gelfoam Size 100) 1 each STK-MED ONCE .ROUTE Last administered on at 12:52; Start 01/10/19 at 05:50; Stop 01/10/19 at 06:50; Status DC Bupivacaine HCl/ Epinephrine Bitart (Sensorcain-Mpf Epi 0.5%-1:[id number]) 30 ml STK -MED ONCE .ROUTE Last administered on 01/10/19 12:52; Start 01/10/19 at 05:50 ; Stop 01/10/19 at 06:50; Status DC Ketorolac Tromethamine (Toradol For Or Only) 60 mg STK-MED ONCE .ROUTE Last administered on 3/27/19at 12:52; Start 01/10/19 at 05:50; Stop 01/10/19 at 06:50 ; Status DC Thrombin 20,000 unit STK-MED ONCE TP Last administered on 01/10/19at 12:52; Start 01/10/19 at 05:50; Stop 01/10/19 at 06:50; Status DC Propofol 20 ml @ As Directed STK-MED ONCE IV ; Start 01/10/19 at 10:25; Stop at 10:26; Status DC Dexamethasone Sodium Phosphate (Decadron) 20 mg STK-MED ONCE .ROUTE ; Start at 10:25; Stop 01/10/19 at 10:26; Status DC Lidocaine HCl (Lidocaine Pf 2% Vial) 5 ml STK-MED ONCE .ROUTE ; Start 01/10/19 at 10:25; Stop 01/10/19 at 10:26; Status DC Ondansetron HCl (Zofran) 4 mg STK-MED ONCE .ROUTE ; Start 01/10/19 at 10:25; Stop 01/10/19 at 10:26; Status DC Rocuronium Shiner (Zemuron) 50 mg STK-MED ONCE .ROUTE ; Start 01/10/19 at 10:25 ; Stop 01/10/19 at 10:26; Status DC Remifentanil HCl (Ultiva) 2 mg STK-MED ONCE IV ; Start 01/10/19 at 10:26; Stop 01/10/19 at 10:27; Status DC Propofol 100 ml @ As Directed STK-MED ONCE IV ; Start 01/10/19 at 09:28; Stop 01/10/19 at 10:29; Status DC Desflurane (Suprane) 90 ml STK-MED ONCE IH ; Start 01/10/19 at 10:44; Stop 01/10 at 10:45; Status DC Glycopyrrolate (Robinul) 1 mg STK-MED ONCE .ROUTE ; Start 01/10/19 at 10:44; Stop 01/10/19 at 10:45; Status DC Phenylephrine HCl (Slim-Synephrine Inj) 10 mg STK-MED ONCE .ROUTE ; Start at 10:45; Stop 01/10/19 at 10:46; Status DC Midazolam HCl (Versed) 2 mg STK-MED ONCE .ROUTE ; Start 01/10/19 at 11:37; Stop 01/10/19 at 11:38; Status DC Ephedrine Sulfate (ePHEDrine PF IN SALINE SYRINGE) 50 mg STK-MED ONCE IV ; Start 01/10/19 at 12:05; Stop 01/10/19 at 12:06; Status DC Dexamethasone Sodium Phosphate (Decadron) 20 mg STK-MED ONCE .ROUTE ; Start at 12:08; Stop 01/10/19 at 12:09; Status DC Epinephrine HCl (EPINEPHrine SYRINGE) 1 mg STK-MED ONCE .ROUTE ; Start 01/10/19 at 12:21; Stop 01/10/19 at 12:22; Status DC Phenylephrine HCl (Slim-Synephrine Inj) 10 mg STK-MED ONCE .ROUTE ; Start at 13:39; Stop 01/10/19 at 13:40; Status DC Remifentanil HCl (Ultiva) 2 mg STK-MED ONCE IV ; Start 01/10/19 at 14:14; Stop 01/10/19 at 14:15; Status DC Propofol 0 ml @ As Directed STK-MED ONCE IV ; Start 01/10/19 at 14:44; Stop at 14:45; Status DC Propofol 20 ml @ As Directed STK-MED ONCE IV ; Start 01/10/19 at 15:40; Stop at 15:41; Status DC Propofol 50 ml @ As Directed STK-MED ONCE IV ; Start 01/10/19 at 16:02; Stop at 16:03; Status DC Ketorolac Tromethamine (Toradol For Or Only) 30 mg STK-MED ONCE INJ ; Start at 16:46; Stop 01/10/19 at 16:47; Status DC Fentanyl Citrate (Fentanyl 2ml Vial) 100 mcg STK-MED ONCE .ROUTE ; Start at 16:48; Stop 01/10/19 at 16:49; Status DC Remifentanil HCl (Ultiva) 1 mg STK-MED ONCE IV ; Start 01/10/19 at 16:55; Stop 01/10/19 at 16:56; Status DC Amlodipine Besylate (Norvasc) 5 mg DAILY PO Last administered on 01/11/19 08: 21; Start 01/11/19 at 09:00 Aspirin (Ecotrin) 81 mg DAILY08 PO Last administered on 01/11/19 08:19; Start 01/11/19 at 08:00 Atorvastatin Calcium (Lipitor) 20 mg HS PO Last administered on 01/10/19 20:36 ; Start 01/10/19 at 21:00 EZETIMIBE (Zetia) 10 mg DAILY PO Last administered on 01/11/19 08:19; Start at 09:00 Hydrochlorothiazide (Hydrodiuril) 25 mg DAILY PO Last administered on 08:21; Start 01/11/19 at 09:00 Lisinopril (Prinivil) 40 mg DAILY PO Last administered on 01/11/19 08:22; Start 01/11/19 at 09:00 Vitamin D (Vitamin D3) 5,000 unit DAILY PO Last administered on 01/11/19 08:20 ; Start 01/11/19 at 09:00 Cyanocobalamin (Vitamin B-12) 2,500 mcg DAILY PO Last administered on 08:18; Start 01/11/19 at 09:00 Doxazosin Mesylate (Cardura) 4 mg BID PO Last administered on 01/11/19 08:20; Start 01/10/19 at 21:00 Duloxetine HCl (Cymbalta) 60 mg DAILY PO Last administered on 01/11/19 08:20; Start 01/11/19 at 09:00 Lactobacillus Rhamnosus (Culturelle) 1 cap BID PO Last administered on 08:19; Start 01/10/19 at 21:00 Magnesium Oxide (Magnesium Oxide) 400 mg DAILY PO Last administered on 08:19; Start 01/11/19 at 09:00 Metformin HCl (Glucophage) 1,000 mg BIDWMEALS PO Last administered on 08:18; Start 01/11/19 at 08:00 Fish Oil (Fish Oil) 1,000 mg BID PO Last administered on 01/11/19 08:19; Start 01/10/19 at 21:00 Polyethylene Glycol (miraLAX PACKET) 17 gm DAILY PO Last administered on at 08:18; Start 01/11/19 at 09:00 Fentanyl Citrate (Fentanyl 2ml Vial) 50 mcg PRN Q2HR PRN IV PAIN SEVERE Last administered on 01/11/19at 08:29; Start 01/10/19 at 17:00 Acetaminophen (Tylenol) 650 mg PRN Q6HRS PRN PO MILD PAIN / TEMP; Start at 17:00 Al Hydroxide/Mg Hydroxide (Mylanta Plus Xs) 30 ml PRN Q3HRS PRN PO HEARTBURN / GAS; Start 01/10/19 at 17:00 Calcium Carbonate/ Glycine (Tums) 500 mg PRN Q3HRS PRN PO INDIGESTION; Start at 17:00 Diphenhydramine HCl (Benadryl) 25 mg PRN Q6HRS PRN PO ITCHING; Start 01/10/19 at 17:00 Naloxone HCl (Narcan) 0.1 mg PRN Q2MIN PRN IV ADMIN; Start 01/10/19 at 17:00 Sodium Chloride (Normal Saline Flush) 3 ml QSHIFT PRN IV AFTER MEDS AND BLOOD DRAWS; Start 01/10/19 at 17:00 Potassium Chloride/Sodium Chloride 1,000 ml @ 75 mls/hr [id number] IV ; Start at 16:56 Oxycodone/ Acetaminophen (Percocet 5/325) 1 tab PRN Q4HRS PRN PO MILD PAIN, 1ST CHOICE Last administered on 01/10/19at 20:36; Start 01/10/19 at 17:00 Oxycodone/ Acetaminophen (Percocet 5/325) 2 tab PRN Q4HRS PRN PO MODERATE PAIN , SEVERE PAIN; Start 01/10/19 at 17:00 Methocarbamol (Robaxin) 750 mg TID PO Last administered on 01/11/19at 08:19; Start 01/10/19 at 21:00 Docusate Sodium (Colace) 100 mg BID PO Last administered on 01/11/19at 08:18; Start 01/10/19 at 21:00 Magnesium Hydroxide (Milk Of Magnesia) 2,400 mg PRN Q12HR PRN PO CONSTIPATION; Start 01/10/19 at 17:00 Fentanyl Citrate (Fentanyl 2ml Vial) 100 mcg STK-MED ONCE .ROUTE ; Start at 17:55; Stop 01/10/19 at 17:56; Status DC Fentanyl Citrate (Fentanyl 2ml Vial) 100 mcg STK-MED ONCE .ROUTE ; Start at 18:14; Stop 01/10/19 at 18:15; Status DC Active Scripts Active Reported Magnesium Oxide 400 Mg Tablet 400 Mg PO DAILY Vitamin B12 (Cyanocobalamin (Vitamin B-12)) 2,500 Mcg Tab.chew 2,500 Mcg PO DAILY Atorvastatin Calcium 20 Mg Tablet 20 Mg PO HS Miralax (Polyethylene Glycol 3350) 119 Gm Powder 17 Gm PO DAILY Zetia (Ezetimibe) 10 Mg Tablet 10 Mg PO DAILY [juice plus bid] Frierson-3 (Frierson-3 Fatty Acids) 1,000 Mg Capsule 1,000 Mg PO BID Metformin Hcl 1,000 Mg Tablet 1,000 Mg PO BIDWMEALS Lisinopril 40 Mg Tablet 40 Mg PO DAILY Hydrochlorothiazide Tablet (Hydrochlorothiazide) 25 Mg Tablet 25 Mg PO DAILY Doxazosin Mesylate 8 Mg Tablet 4 Mg PO BID Cymbalta (Duloxetine Hcl) 60 Mg Capsule. 60 Mg PO BID Vitamin D (Cholecalciferol (Vitamin D3)) 10,000 Unit Capsule 5,000 Unit PO DAILY Aspir 81 (Aspirin) 81 Mg Tablet. 1 Tab PO DAILY Amlodipine Besylate 5 Mg Tablet 5 Mg PO DAILY Probiotic (Lactobacillus Combo No.10) 1 Each Capsule 1 Each PO BID Vitals/I & O Vital Sign - Last 24 Hours 01/10/19 01/10/19 01/10/19 01/10/19 10:26 17:20 17:20 17:35 Temp 98.5 97.3 98.5 97.3 Pulse 57 68 66 Resp 20 14 16 B/P (MAP) 114/56 120/50 136/60 Pulse Ox 94 98 98 O2 Delivery Room Air Simple Mask Mask Simple Mask O2 Flow Rate 8 8 8 01/10/19 01/10/19 01/10/19 01/10/19 17:50 17:50 18:05 18:06 Pulse 68 68 Resp 14 16 16 16 B/P (MAP) 137/76 148/66 Pulse Ox 95 96 94 96 O2 Delivery Nasal Cannula Nasal Cannula Nasal Cannula Nasal Cannula O2 Flow Rate 2 2.0 2 2.0 01/10/19 01/10/19 01/10/19 01/10/19 18:20 18:30 18:30 18:30 Temp 97.3 97.7 97.3 97.7 Pulse 72 77 Resp 16 16 16 B/P (MAP) 146/66 126/67 (86) Pulse Ox 94 96 91 O2 Delivery Nasal Cannula Nasal Cannula Nasal Cannula Nasal Cannula O2 Flow Rate 2 2.0 2.0 2 01/10/19 01/10/19 01/10/19 01/10/19 18:45 19:00 19:00 19:15 Temp 97.7 97.7 Pulse 89 93 91 Resp 18 18 20 B/P (MAP) 121/65 (83) 123/60 (81) 123/63 (83) Pulse Ox 93 93 93 94 O2 Delivery Nasal Cannula Nasal Cannula Nasal Cannula Nasal Cannula O2 Flow Rate 2.0 2.0 2.0 2.0 01/10/19 01/10/19 01/10/19 01/10/19 19:45 19:45 20:15 20:36 Temp 97.7 97.7 97.7 97.7 Pulse 87 83 Resp 18 18 18 B/P (MAP) 131/63 (85) 115/52 (73) Pulse Ox 93 95 93 O2 Delivery Nasal Cannula Nasal Cannula Nasal Cannula Nasal Cannula O2 Flow Rate 2.0 2.0 2.0 2.0 01/10/19 01/10/19 01/10/19 01/10/19 20:38 21:40 22:15 22:55 Temp 97.8 98.4 97.8 98.4 Pulse 83 74 75 Resp 18 18 18 B/P (MAP) 115/52 112/56 (74) 115/61 (79) Pulse Ox 94 93 94 O2 Delivery Nasal Cannula Nasal Cannula BiPAP/CPAP O2 Flow Rate 2.0 2.0 01/11/19 01/11/19 01/11/19 01/11/19 03:23 06:15 08:20 08:21 Temp 98.9 98.9 Pulse 72 60 60 Resp 16 B/P (MAP) 125/81 (96) 120/50 120/50 Pulse Ox 95 O2 Delivery BiPAP/CPAP BiPAP/CPAP 01/11/19 01/11/19 01/11/19 08:22 08:29 09:43 Pulse 60 B/P (MAP) 120/50 O2 Delivery Room Air Room Air Intake and Output 01/10/19 01/10/19 01/11/19 14:59 22:59 06:59 Intake Total 1950 ml 1500 ml Output Total 1380 ml 690 ml Balance 570 ml 810 ml RADHA HERNANDEZ MD Jan 11, 2019 10:14
--- NOTE | 2019-01-11 10:50 | PDOC ---
PROGRESS NOTES Subjective Subjective POD #1 s/p laminectomy L2-3, 3-4, 4-5 ambulating in [place] with PT Reports significant improvement in lower extremity strength some back pain, controlled with medication required straight cath this morning Objective Objective Vital Signs Date Time Temp Pulse Resp B/P (MAP) Pulse Ox O2 Delivery O2 Flow Rate FiO2 01/11/19 09:43 Room Air 01/11/19 08:22 60 120/50 01/11/19 03:23 98.9 16 95 98.9 01/10/19 22:15 2.0 Intake and Output 01/11/19 07:00 Intake Total 3450 ml Output Total 2070 ml Balance 1380 ml Intake Oral 2100 ml IV Total 1350 ml Output Urine Total 1400 ml Drainage Total 270 ml Estimated Blood Loss 400 ml Physical Exam General: Alert, Oriented X3, Cooperative, No acute distress MUSCULOSKELETAL: Other (LIN) Neuro: Normal speech, Other (strength 5/5 in BLE) Skin: Other (Drain removed, dressing changed) Plan Plan of Care urology consulted likely dc home tomorrow with OP therapy encouraged increased activity as tolerated Comment Review of Relevant I have reviewed the following items sebas (where applicable) has been applied. Labs Laboratory Tests Test 01/10/19 13:47 01/10/19 18:01 01/10/19 20:42 01/11/19 06:14 Glucose (Fingerstick) 98 mg/dL (70-99) 141 mg/dL (70-99) 195 mg/dL (70-99) 116 mg/dL (70-99) Laboratory Tests Test 01/10/19 13:47 01/10/19 18:01 01/10/19 20:42 01/11/19 06:14 Glucose (Fingerstick) 98 mg/dL (70-99) 141 mg/dL (70-99) 195 mg/dL (70-99) 116 mg/dL (70-99) Medications Current Medications Bacitracin 18897 unit/Sodium Chloride 1,000 ml @ 1,000 mls/hr 1X ONCE IRR Last administered on 01/10/19at 12:52; Start 01/10/19 at 06:00; Stop 01/10/19 at 06:59; Status DC Vancomycin HCl 250 ml @ 250 mls/hr 1X PREOP PRN IV PRIOR TO PROCEDURE Last administered on 01/10/19at 11:55; Start 01/10/19 at 06:00; Stop 01/10/19 at 18:00 ; Status DC Ondansetron HCl (Zofran) 4 mg PRN Q6HRS PRN IV NAUSEA/VOMITING; Start 01/10/19 at 07:00; Stop 01/11/19 at 06:59; Status DC Fentanyl Citrate (Fentanyl 2ml Vial) 25 mcg PRN Q5MIN PRN IV MILD PAIN; Start 01/10/19 at 07:00; Stop 01/11/19 at 06:59; Status DC Fentanyl Citrate (Fentanyl 2ml Vial) 50 mcg PRN Q5MIN PRN IV MODERATE TO SEVERE PAIN Last administered on 01/10/19at 18:30; Start 01/10/19 at 07:00; Stop 01/11/19 at 06:59; Status DC Morphine Sulfate (Morphine Sulfate) 1 mg PRN Q10MIN PRN IV SEVERE PAIN; Start 01/10/19 at 07:00; Stop 01/11/19 at 06:59; Status DC Ringer's Solution 1,000 ml @ 30 mls/hr Q24H IV Last administered on 01/10/19at 10:42; Start 01/10/19 at 07:00; Stop 01/10/19 at 18:59; Status DC Hydromorphone HCl (Dilaudid) 0.5 mg PRN Q10MIN PRN IV SEV PAIN, Second choice; Start 01/10/19 at 07:00; Stop 01/11/19 at 06:59; Status DC Prochlorperazine Edisylate (Compazine) 5 mg PACU PRN PRN IV NAUSEA, MRX1; Start 01/10/19 at 07:00; Stop 01/11/19 at 06:59; Status DC Gelatin (Gelfoam Size 100) 1 each STK-MED ONCE .ROUTE Last administered on at 12:52; Start 01/10/19 at 05:50; Stop 01/10/19 at 06:50; Status DC Bupivacaine HCl/ Epinephrine Bitart (Sensorcain-Mpf Epi 0.5%-1:[id number]) 30 ml STK -MED ONCE .ROUTE Last administered on 01/10/19at 12:52; Start 01/10/19 at 05:50 ; Stop 01/10/19 at 06:50; Status DC Ketorolac Tromethamine (Toradol For Or Only) 60 mg STK-MED ONCE .ROUTE Last administered on 01/10/19at 12:52; Start 01/10/19 at 05:50; Stop 01/10/19 at 06:50 ; Status DC Thrombin 20,000 unit STK-MED ONCE TP Last administered on 01/10/19at 12:52; Start 01/10/19 at 05:50; Stop 01/10/19 at 06:50; Status DC Propofol 20 ml @ As Directed STK-MED ONCE IV ; Start 01/10/19 at 10:25; Stop at 10:26; Status DC Dexamethasone Sodium Phosphate (Decadron) 20 mg STK-MED ONCE .ROUTE ; Start at 10:25; Stop 01/10/19 at 10:26; Status DC Lidocaine HCl (Lidocaine Pf 2% Vial) 5 ml STK-MED ONCE .ROUTE ; Start 01/10/19 at 10:25; Stop 01/10/19 at 10:26; Status DC Ondansetron HCl (Zofran) 4 mg STK-MED ONCE .ROUTE ; Start 01/10/19 at 10:25; Stop 01/10/19 at 10:26; Status DC Rocuronium Ovid (Zemuron) 50 mg STK-MED ONCE .ROUTE ; Start 01/10/19 at 10:25 ; Stop 01/10/19 at 10:26; Status DC Remifentanil HCl (Ultiva) 2 mg STK-MED ONCE IV ; Start 01/10/19 at 10:26; Stop 01/10/19 at 10:27; Status DC Propofol 100 ml @ As Directed STK-MED ONCE IV ; Start 01/10/19 at 09:28; Stop 01/10/19 at 10:29; Status DC Desflurane (Suprane) 90 ml STK-MED ONCE IH ; Start 01/10/19 at 10:44; Stop 01/10 at 10:45; Status DC Glycopyrrolate (Robinul) 1 mg STK-MED ONCE .ROUTE ; Start 01/10/19 at 10:44; Stop 01/10/19 at 10:45; Status DC Phenylephrine HCl (Slim-Synephrine Inj) 10 mg STK-MED ONCE .ROUTE ; Start at 10:45; Stop 01/10/19 at 10:46; Status DC Midazolam HCl (Versed) 2 mg STK-MED ONCE .ROUTE ; Start 01/10/19 at 11:37; Stop 01/10/19 at 11:38; Status DC Ephedrine Sulfate (ePHEDrine PF IN SALINE SYRINGE) 50 mg STK-MED ONCE IV ; Start 01/10/19 at 12:05; Stop 01/10/19 at 12:06; Status DC Dexamethasone Sodium Phosphate (Decadron) 20 mg STK-MED ONCE .ROUTE ; Start at 12:08; Stop 01/10/19 at 12:09; Status DC Epinephrine HCl (EPINEPHrine SYRINGE) 1 mg STK-MED ONCE .ROUTE ; Start 01/10/19 at 12:21; Stop 01/10/19 at 12:22; Status DC Phenylephrine HCl (Slim-Synephrine Inj) 10 mg STK-MED ONCE .ROUTE ; Start at 13:39; Stop 01/10/19 at 13:40; Status DC Remifentanil HCl (Ultiva) 2 mg STK-MED ONCE IV ; Start 01/10/19 at 14:14; Stop 01/10/19 at 14:15; Status DC Propofol 0 ml @ As Directed STK-MED ONCE IV ; Start 01/10/19 at 14:44; Stop at 14:45; Status DC Propofol 20 ml @ As Directed STK-MED ONCE IV ; Start 01/10/19 at 15:40; Stop at 15:41; Status DC Propofol 50 ml @ As Directed STK-MED ONCE IV ; Start 01/10/19 at 16:02; Stop at 16:03; Status DC Ketorolac Tromethamine (Toradol For Or Only) 30 mg STK-MED ONCE INJ ; Start at 16:46; Stop 01/10/19 at 16:47; Status DC Fentanyl Citrate (Fentanyl 2ml Vial) 100 mcg STK-MED ONCE .ROUTE ; Start at 16:48; Stop 01/10/19 at 16:49; Status DC Remifentanil HCl (Ultiva) 1 mg STK-MED ONCE IV ; Start 01/10/19 at 16:55; Stop 01/10/19 at 16:56; Status DC Amlodipine Besylate (Norvasc) 5 mg DAILY PO Last administered on 01/11/19 08: 21; Start 01/11/19 at 09:00 Aspirin (Ecotrin) 81 mg DAILY08 PO Last administered on 01/11/19 08:19; Start 01/11/19 at 08:00 Atorvastatin Calcium (Lipitor) 20 mg HS PO Last administered on 01/10/19 20:36 ; Start 01/10/19 at 21:00 EZETIMIBE (Zetia) 10 mg DAILY PO Last administered on 01/11/19 08:19; Start at 09:00 Hydrochlorothiazide (Hydrodiuril) 25 mg DAILY PO Last administered on 08:21; Start 01/11/19 at 09:00 Lisinopril (Prinivil) 40 mg DAILY PO Last administered on 01/11/19 08:22; Start 01/11/19 at 09:00 Vitamin D (Vitamin D3) 5,000 unit DAILY PO Last administered on 01/11/19 08:20 ; Start 01/11/19 at 09:00 Cyanocobalamin (Vitamin B-12) 2,500 mcg DAILY PO Last administered on 08:18; Start 01/11/19 at 09:00 Doxazosin Mesylate (Cardura) 4 mg BID PO Last administered on 01/11/19 08:20; Start 01/10/19 at 21:00 Duloxetine HCl (Cymbalta) 60 mg DAILY PO Last administered on 01/11/19 08:20; Start 01/11/19 at 09:00 Lactobacillus Rhamnosus (Culturelle) 1 cap BID PO Last administered on 08:19; Start 01/10/19 at 21:00 Magnesium Oxide (Magnesium Oxide) 400 mg DAILY PO Last administered on 08:19; Start 01/11/19 at 09:00 Metformin HCl (Glucophage) 1,000 mg BIDWMEALS PO Last administered on 08:18; Start 01/11/19 at 08:00 Fish Oil (Fish Oil) 1,000 mg BID PO Last administered on 01/11/19at 08:19; Start 01/10/19 at 21:00 Polyethylene Glycol (miraLAX PACKET) 17 gm DAILY PO Last administered on at 08:18; Start 01/11/19 at 09:00 Fentanyl Citrate (Fentanyl 2ml Vial) 50 mcg PRN Q2HR PRN IV PAIN SEVERE Last administered on 01/11/19at 08:29; Start 01/10/19 at 17:00 Acetaminophen (Tylenol) 650 mg PRN Q6HRS PRN PO MILD PAIN / TEMP; Start at 17:00 Al Hydroxide/Mg Hydroxide (Mylanta Plus Xs) 30 ml PRN Q3HRS PRN PO HEARTBURN / GAS; Start 01/10/19 at 17:00 Calcium Carbonate/ Glycine (Tums) 500 mg PRN Q3HRS PRN PO INDIGESTION; Start at 17:00 Diphenhydramine HCl (Benadryl) 25 mg PRN Q6HRS PRN PO ITCHING; Start 01/10/19 at 17:00 Naloxone HCl (Narcan) 0.1 mg PRN Q2MIN PRN IV ADMIN; Start 01/10/19 at 17:00 Sodium Chloride (Normal Saline Flush) 3 ml QSHIFT PRN IV AFTER MEDS AND BLOOD DRAWS; Start 01/10/19 at 17:00 Potassium Chloride/Sodium Chloride 1,000 ml @ 75 mls/hr [id number] IV ; Start at 16:56 Oxycodone/ Acetaminophen (Percocet 5/325) 1 tab PRN Q4HRS PRN PO MILD PAIN, 1ST CHOICE Last administered on 01/10/19at 20:36; Start 01/10/19 at 17:00 Oxycodone/ Acetaminophen (Percocet 5/325) 2 tab PRN Q4HRS PRN PO MODERATE PAIN , SEVERE PAIN; Start 01/10/19 at 17:00 Methocarbamol (Robaxin) 750 mg TID PO Last administered on 01/11/19at 08:19; Start 01/10/19 at 21:00 Docusate Sodium (Colace) 100 mg BID PO Last administered on 01/11/19at 08:18; Start 01/10/19 at 21:00 Magnesium Hydroxide (Milk Of Magnesia) 2,400 mg PRN Q12HR PRN PO CONSTIPATION; Start 01/10/19 at 17:00 Fentanyl Citrate (Fentanyl 2ml Vial) 100 mcg STK-MED ONCE .ROUTE ; Start at 17:55; Stop 01/10/19 at 17:56; Status DC Fentanyl Citrate (Fentanyl 2ml Vial) 100 mcg STK-MED ONCE .ROUTE ; Start at 18:14; Stop 01/10/19 at 18:15; Status DC Pregabalin (Lyrica) 50 mg BID PO ; Start 01/11/19 at 11:30 Tramadol HCl (Ultram) 50 mg PRN Q6HRS PRN PO PAIN; Start 01/11/19 at 10:30 Active Scripts Active Reported Magnesium Oxide 400 Mg Tablet 400 Mg PO DAILY Vitamin B12 (Cyanocobalamin (Vitamin B-12)) 2,500 Mcg Tab.chew 2,500 Mcg PO DAILY Atorvastatin Calcium 20 Mg Tablet 20 Mg PO HS Miralax (Polyethylene Glycol 3350) 119 Gm Powder 17 Gm PO DAILY Zetia (Ezetimibe) 10 Mg Tablet 10 Mg PO DAILY [juice plus bid] Alfred-3 (Alfred-3 Fatty Acids) 1,000 Mg Capsule 1,000 Mg PO BID Metformin Hcl 1,000 Mg Tablet 1,000 Mg PO BIDWMEALS Lisinopril 40 Mg Tablet 40 Mg PO DAILY Hydrochlorothiazide Tablet (Hydrochlorothiazide) 25 Mg Tablet 25 Mg PO DAILY Doxazosin Mesylate 8 Mg Tablet 4 Mg PO BID Cymbalta (Duloxetine Hcl) 60 Mg Capsule. 60 Mg PO BID Vitamin D (Cholecalciferol (Vitamin D3)) 10,000 Unit Capsule 5,000 Unit PO DAILY Aspir 81 (Aspirin) 81 Mg Tablet. 1 Tab PO DAILY Amlodipine Besylate 5 Mg Tablet 5 Mg PO DAILY Probiotic (Lactobacillus Combo No.10) 1 Each Capsule 1 Each PO BID Vitals/I & O Vital Sign - Last 24 Hours 01/10/19 01/10/19 01/10/19 01/10/19 17:20 17:20 17:35 17:50 Temp 97.3 97.3 Pulse 68 66 68 Resp 14 16 14 B/P (MAP) 120/50 136/60 137/76 Pulse Ox 98 98 95 O2 Delivery Simple Mask Mask Simple Mask Nasal Cannula O2 Flow Rate 8 8 8 2 3/27/19 3/27/19 3/27/19 3/27/19 17:50 18:05 18:06 18:20 Temp 97.3 97.3 Pulse 68 72 Resp 16 16 16 16 B/P (MAP) 148/66 146/66 Pulse Ox 96 94 96 94 O2 Delivery Nasal Cannula Nasal Cannula Nasal Cannula Nasal Cannula O2 Flow Rate 2.0 2 2.0 2 01/10/19 01/10/19 01/10/19 01/10/19 18:30 18:30 18:30 18:45 Temp 97.7 97.7 Pulse 77 89 Resp 16 16 B/P (MAP) 126/67 (86) 121/65 (83) Pulse Ox 96 91 93 O2 Delivery Nasal Cannula Nasal Cannula Nasal Cannula Nasal Cannula O2 Flow Rate 2.0 2.0 2 2.0 01/10/19 01/10/19 01/10/19 01/10/19 19:00 19:00 19:15 19:45 Temp 97.7 97.7 97.7 97.7 Pulse 93 91 87 Resp 18 18 20 18 B/P (MAP) 123/60 (81) 123/63 (83) 131/63 (85) Pulse Ox 93 93 94 93 O2 Delivery Nasal Cannula Nasal Cannula Nasal Cannula Nasal Cannula O2 Flow Rate 2.0 2.0 2.0 2.0 01/10/19 01/10/19 01/10/19 01/10/19 19:45 20:15 20:36 20:38 Temp 97.7 97.7 Pulse 83 83 Resp 18 18 B/P (MAP) 115/52 (73) 115/52 Pulse Ox 95 93 O2 Delivery Nasal Cannula Nasal Cannula Nasal Cannula O2 Flow Rate 2.0 2.0 2.0 01/10/19 01/10/19 01/10/19 01/11/19 21:40 22:15 22:55 03:23 Temp 97.8 98.4 98.9 97.8 98.4 98.9 Pulse 74 75 72 Resp 18 18 18 16 B/P (MAP) 112/56 (74) 115/61 (79) 125/81 (96) Pulse Ox 94 93 94 95 O2 Delivery Nasal Cannula Nasal Cannula BiPAP/CPAP BiPAP/CPAP O2 Flow Rate 2.0 2.0 3/2801/11/19 01/11/19 01/11/19 06:15 08:20 08:21 08:22 Pulse 60 60 60 B/P (MAP) 120/50 120/50 120/50 O2 Delivery BiPAP/CPAP 01/11/19 01/11/19 08:29 09:43 O2 Delivery Room Air Room Air Intake and Output 01/10/19 01/10/19 01/11/19 15:00 23:00 07:00 Intake Total 1950 ml 1500 ml Output Total 1380 ml 690 ml Balance 570 ml 810 ml GIO COLMENARES APRN Jan 11, 2019 10:50
--- NOTE | 2019-01-11 11:16 | PDOC2 ---
CHRIST ABRAMS Jackie FISH HATCHERY MANAGER 01/11/19 1116: UROLOGY CONSULT Date of Consult Date of Consult DATE: 01/11/19 TIME: 11:09 Reason for Consult Reason for Consult: Post operative urinary retention Referring Physician Referring Physician: Rekha Identification/Chief Complaint Chief Complaint Post operative urinary retention Source Source: Caregiver, Chart review, Patient History of Present Illness Reason for Visit: Pt is a pleasant 73 year old who is POD #1 s/p laminectomy L2-3, 3-4, 4-5. During the night after his surgery, he developed some retention and had to be straight cathed at 0400 this am for a return of 500 cc. Since then he has not voided normally at all and does not have the sensation to void either. He reports a history of prostate cancer around 10 years ago for which he saw Dr. Posey of [facility]; he has also seen Dr. Garcia a few times, also of [facility] [place]. This is also not the first time he has had post operative urinary retention. He had a back surgery two years ago and at that time he also developed urinary retention and had to have an indwelling Conte catheter inserted which he did go home with and then have taken out in the clinic He prefers not to do that today if possible. He denies dysuria, hematuria or flank pain and also has no sensation of needing to void or having anything in his bladder. Past Medical History Musculoskeletal: Other (Surgery 01/11/19) Social History Lives: with Family Current Problem List Problems: (1) Urinary retention Current Medications Current Medications Current Medications Acetaminophen (Tylenol) 650 mg PRN Q6HRS PRN PO MILD PAIN / TEMP; Start at 17:00 Al Hydroxide/Mg Hydroxide (Mylanta Plus Xs) 30 ml PRN Q3HRS PRN PO HEARTBURN / GAS; Start 01/10/19 at 17:00 Amlodipine Besylate (Norvasc) 5 mg DAILY PO Last administered on 01/11/19at 08: 21; Start 01/11/19 at 09:00 Aspirin (Ecotrin) 81 mg DAILY08 PO Last administered on 01/11/19at 08:19; Start 01/11/19 at 08:00 Atorvastatin Calcium (Lipitor) 20 mg HS PO Last administered on 01/10/19at 20:36 ; Start 01/10/19 at 21:00 Calcium Carbonate/ Glycine (Tums) 500 mg PRN Q3HRS PRN PO INDIGESTION; Start at 17:00 Cyanocobalamin (Vitamin B-12) 2,500 mcg DAILY PO Last administered on at 08:18; Start 01/11/19 at 09:00 Dexamethasone Sodium Phosphate (Decadron) 20 mg STK-MED ONCE .ROUTE ; Start at 12:08; Stop 01/10/19 at 12:09; Status DC Diphenhydramine HCl (Benadryl) 25 mg PRN Q6HRS PRN PO ITCHING; Start 01/10/19 at 17:00 Docusate Sodium (Colace) 100 mg BID PO Last administered on 01/11/19at 08:18; Start 01/10/19 at 21:00 Doxazosin Mesylate (Cardura) 4 mg BID PO Last administered on 01/11/19at 08:20; Start 01/10/19 at 21:00 Duloxetine HCl (Cymbalta) 60 mg DAILY PO Last administered on 01/11/19at 08:20; Start 01/11/19 at 09:00 Ephedrine Sulfate (ePHEDrine PF IN SALINE SYRINGE) 50 mg STK-MED ONCE IV ; Start 01/10/19 at 12:05; Stop 01/10/19 at 12:06; Status DC Epinephrine HCl (EPINEPHrine SYRINGE) 1 mg STK-MED ONCE .ROUTE ; Start 01/10/19 at 12:21; Stop 01/10/19 at 12:22; Status DC EZETIMIBE (Zetia) 10 mg DAILY PO Last administered on 01/11/19at 08:19; Start at 09:00 Fentanyl Citrate (Fentanyl 2ml Vial) 50 mcg PRN Q2HR PRN IV PAIN SEVERE Last administered on 01/11/19at 08:29; Start 01/10/19 at 17:00 Fentanyl Citrate (Fentanyl 2ml Vial) 100 mcg STK-MED ONCE .ROUTE ; Start at 16:48; Stop 01/10/19 at 16:49; Status DC Fentanyl Citrate (Fentanyl 2ml Vial) 100 mcg STK-MED ONCE .ROUTE ; Start at 17:55; Stop 01/10/19 at 17:56; Status DC Fentanyl Citrate (Fentanyl 2ml Vial) 100 mcg STK-MED ONCE .ROUTE ; Start at 18:14; Stop 01/10/19 at 18:15; Status DC Fish Oil (Fish Oil) 1,000 mg BID PO Last administered on 01/11/19at 08:19; Start 01/10/19 at 21:00 Hydrochlorothiazide (Hydrodiuril) 25 mg DAILY PO Last administered on at 08:21; Start 01/11/19 at 09:00 Ketorolac Tromethamine (Toradol For Or Only) 30 mg STK-MED ONCE INJ ; Start at 16:46; Stop 01/10/19 at 16:47; Status DC Lactobacillus Rhamnosus (Culturelle) 1 cap BID PO Last administered on at 08:19; Start 01/10/19 at 21:00 Lisinopril (Prinivil) 40 mg DAILY PO Last administered on 01/11/19at 08:22; Start 01/11/19 at 09:00 Magnesium Hydroxide (Milk Of Magnesia) 2,400 mg PRN Q12HR PRN PO CONSTIPATION; Start 01/10/19 at 17:00 Magnesium Oxide (Magnesium Oxide) 400 mg DAILY PO Last administered on at 08:19; Start 01/11/19 at 09:00 Metformin HCl (Glucophage) 1,000 mg BIDWMEALS PO Last administered on at 08:18; Start 01/11/19 at 08:00 Methocarbamol (Robaxin) 750 mg TID PO Last administered on 01/11/19at 08:19; Start 01/10/19 at 21:00 Midazolam HCl (Versed) 2 mg STK-MED ONCE .ROUTE ; Start 01/10/19 at 11:37; Stop 01/10/19 at 11:38; Status DC Naloxone HCl (Narcan) 0.1 mg PRN Q2MIN PRN IV ADMIN; Start 01/10/19 at 17:00 Oxycodone/ Acetaminophen (Percocet 5/325) 1 tab PRN Q4HRS PRN PO MILD PAIN, 1ST CHOICE Last administered on 01/10/19at 20:36; Start 01/10/19 at 17:00 Oxycodone/ Acetaminophen (Percocet 5/325) 2 tab PRN Q4HRS PRN PO MODERATE PAIN , SEVERE PAIN; Start 01/10/19 at 17:00 Phenylephrine HCl (Slim-Synephrine Inj) 10 mg STK-MED ONCE .ROUTE ; Start at 13:39; Stop 01/10/19 at 13:40; Status DC Polyethylene Glycol (miraLAX PACKET) 17 gm DAILY PO Last administered on at 08:18; Start 01/11/19 at 09:00 Potassium Chloride/Sodium Chloride 1,000 ml @ 75 mls/hr [id number] IV ; Start at 16:56 Pregabalin (Lyrica) 50 mg BID PO ; Start 01/11/19 at 11:30 Propofol 0 ml @ As Directed STK-MED ONCE IV ; Start 01/10/19 at 14:44; Stop at 14:45; Status DC Propofol 20 ml @ As Directed STK-MED ONCE IV ; Start 01/10/19 at 15:40; Stop at 15:41; Status DC Propofol 50 ml @ As Directed STK-MED ONCE IV ; Start 01/10/19 at 16:02; Stop at 16:03; Status DC Remifentanil HCl (Ultiva) 1 mg STK-MED ONCE IV ; Start 01/10/19 at 16:55; Stop 01/10/19 at 16:56; Status DC Remifentanil HCl (Ultiva) 2 mg STK-MED ONCE IV ; Start 01/10/19 at 14:14; Stop 01/10/19 at 14:15; Status DC Sodium Chloride (Normal Saline Flush) 3 ml QSHIFT PRN IV AFTER MEDS AND BLOOD DRAWS; Start 01/10/19 at 17:00 Tramadol HCl (Ultram) 50 mg PRN Q6HRS PRN PO PAIN; Start 01/11/19 at 10:30 Vitamin D (Vitamin D3) 5,000 unit DAILY PO Last administered on 01/11/19at 08:20 ; Start 01/11/19 at 09:00 Allergies Allergies: Coded Allergies: Penicillins (Verified Allergy, Intermediate, Hives, 01/10/19) ROS Review Of Systems: CONSTITUTIONAL: No fever or chills EYES: No recent changes SKIN: No rash or itching CARDIOVASCULAR: No chest pain, syncope, palpitations, or edema RESPIRATORY: No SOB or cough GASTROINTESTINAL: No nausea, vomiting or abdominal pain NEUROLOGICAL: No headaches or weakness ENDOCRINE: No cold or heat intolerance GENITOURINARY: + Post operative urinary retention MUSCULOSKELETAL: Surgical pain from recent surgery LYMPHATICS: No enlarged lymph nodes PSYCHIATRIC: No anxiety or depression Physical Exam Physical Exam: General: Pleasant, no acute distress, well groomed Eyes: conjunctiva anicteric, eyes full range of motion ENT: moist oral mucosa, normal dentition Neck: Trachea midline, no masses Respiratory: unlabored breathing, not using accessory muscles, no crackles or wheezes Cardiovascular: Regular rate and rhythm, no peripheral edema Abdomen: nontender, nondistended, no hepatosplenomegaly, no masses Skin: no rashes or skin lesions on visualized skin Psych: normal mood, affect. Alert and oriented x 3. Vitals VITALS Vital Signs Date Time Temp Pulse Resp B/P (MAP) Pulse Ox O2 Delivery O2 Flow Rate FiO2 01/11/19 09:43 Room Air 01/11/19 08:22 60 120/50 01/11/19 03:23 98.9 16 95 98.9 01/10/19 22:15 2.0 Labs Labs Laboratory Tests Test 01/10/19 13:47 01/10/19 18:01 01/10/19 20:42 01/11/19 06:14 Glucose (Fingerstick) 98 mg/dL (70-99) 141 mg/dL (70-99) 195 mg/dL (70-99) 116 mg/dL (70-99) Laboratory Tests Test 01/10/19 13:47 01/10/19 18:01 01/10/19 20:42 01/11/19 06:14 Glucose (Fingerstick) 98 mg/dL (70-99) 141 mg/dL (70-99) 195 mg/dL (70-99) 116 mg/dL (70-99) Assessment/Plan Assessment/Plan Post operative urinary retention: Please place indwelling Conte catheter. Patient may go home with Conte in place. Nursing to teach conte care and provide additional catheter equipment as deemed necessary/requested by patient. Patient may resume doxazosin on discharge. Ok to go home with Conte in place. A follow up appointment has been arranged for him to see Dr. Posey on 01/15/19 at 1050 am. Appointment card given to patient's family. All questions answered. YULY FIERRO MD 01/11/19 1521: UROLOGY CONSULT Assessment/Plan Assessment/Plan Patient seen and examined. Agree with assessment and plan. F/U as outpatient next week for voiding trial. CHRIST ABRAMS APRN Jan 11, 2019 11:16 YULY FIERRO MD Jan 11, 2019 15:21
[2019-01-11 11:30] VITALS: BP 120/39
--- NOTE | 2019-01-11 11:30 | NUR ---
#16 Fr. conte catheter placed with 10cc balloon, tolerated procedure well, immediate returns of clear yellow urine
[2019-01-11] MEDS: PREGABALIN 50 MG CAPSULE PO SCH ×2 (11:58→20:31)
[2019-01-11] MEDS: traMADol 50 MG TABLET PO PRN ×2 (13:33→20:33)
--- NOTE | 2019-01-11 13:52 | CONS ---
DATE OF CONSULTATION: 01/10/2019 I saw him at the request of Dr. Babb on 01/10/2019. HISTORY OF PRESENT ILLNESS: This is a 73-year-old male, retired patient having difficulty with unsteadiness and left ankle pain when he was seen by Dr. Babb in 08/2018. The patient was seen this morning after noticing increase in his lower extremity weakness, also having lower back and leg pain, standing and walking, which can cause him to fall. He was recently seen by a neurologist who thought he had diabetic neuropathy as well as cervical spinal stenosis in addition to other spinal stenosis. His problem really became severe in October, standing makes his back pain and leg pain worse. Sitting helps. He had physical therapy, which gave him no lasting help. He had to use a walker, which gave him stability when compared to using a cane. PAST MEDICAL HISTORY: Includes bilateral total knee arthroplasty, carcinoma of prostate, heart bypass, hypertension, radiation treatment, shingles, sleep apnea, diabetes mellitus, status post coronary artery bypass graft in 2009, left knee arthroplasty in 2012, right knee replacement in 2014 and removal of synovial cyst at T11-T12, lumbar decompression laminectomy at L1-L5 in 02/2017. FAMILY HISTORY: Alzheimer disease, diabetes mellitus, heart problems, hypertension. He lives with his family in [place], [place], and he would like to continue physical therapy on an outpatient basis after discharge. The patient smoked about 1 pack of cigarettes per day for about 40 years, quit about 10 years ago. Drinks alcoholic beverages 1-2 times per year. ALLERGIES: KNOWN ALLERGIC TO PENICILLIN. The patient denies any trouble with his bowel or bladder control. The patient admits less back pain since the surgery. He denies any radiating pain to the extremities. He admits to occasional numbness in his hand. PHYSICAL EXAMINATION: Today revealed an elderly male. He is obese, alert, oriented to time, place, person and circumstance and follows commands appropriately, moves all 4 extremities voluntarily where he had 4+/5 grade muscle strength and deep tendon reflexes are brisk bilaterally with slight exaggeration of both knees and ankles. The patient had tenderness to palpation over lumbar spine area, dressing in place. I have not tested his transfers or ambulation skills at this time as he just had surgery around 5:00 p.m. this evening. He seems to have equal perception of touch and pinprick sensation bilaterally. He had painful range of motion on both hip, knee and ankle joints. ASSESSMENT: An elderly male status post lumbar decompression laminectomy for treatment of lumbar spinal stenosis with lumbar radiculopathy, also with radiological evidence of cervical spinal stenosis with hyperreflexia in his lower extremities and ataxia, requiring use of a roller walker and also a recurrence of synovial cyst at T11-T12 with moderate stenosis at that level. RECOMMENDATIONS: Agree with the plan for physical therapy and occupational therapy to get him up as tolerated. Hopefully, home with outpatient therapy followup. Dr. aBbb, I appreciate asking me to participate in the care of this interesting patient. I will be glad to follow him with you as needed for the rehabilitation. RADHA HERNANDEZ MD DR: RANI/everardo JOB#: [id number] / [id number]
[2019-01-11 18:14] VITALS: BP 126/55
[2019-01-11] MEDS: ATORVASTATIN CALCIUM 20 MG TABLET PO SCH (20:32)
[2019-01-11 23:19] VITALS: BP 121/56
[2019-01-12 03:00] VITALS: BP 95/43
[2019-01-12 07:02] VITALS: BP 102/41
--- NOTE | 2019-01-12 08:00 | NUR ---
sitting on side of bed for breakfast. rating his pain a "4". states that tramadol works well. conte to dd ; patent with clear yellow urine. reviewed discharge instructions orally. already has an appt to see Dr. Posey on Tuesday for removal of catheter.
[2019-01-12] MEDS: metFORMIN 500 MG TABLET PO SCH (08:08)
[2019-01-12] MEDS: POLYETHYLENE GLYCOL 3350 17 GM PACKET. PO SCH (08:09)
[2019-01-12] MEDS: MAGNESIUM OXIDE 400 MG TABLET PO SCH (08:09)
[2019-01-12] MEDS: METHOCARBAMOL 750 MG TABLET PO SCH (08:09)
[2019-01-12] MEDS: CYANOCOBALAMIN (VITAMIN B-12) 1,000 MCG TABLET. PO SCH (08:09)
[2019-01-12] MEDS: DOCUSATE SODIUM 100 MG CAPSULE. PO SCH (08:09)
[2019-01-12] MEDS: OMEGA-3 FATTY ACIDS/FISH OIL 1,000 MG CAPSULE. PO SCH (08:10)
[2019-01-12] MEDS: ASPIRIN ENTERIC COATED 81 MG TABLET.DR. PO SCH (08:10)
[2019-01-12] MEDS: EZETIMIBE 10 MG TABLET. PO SCH (08:10)
[2019-01-12] MEDS: DULoxetine HCL 30 MG CAPSULE.DR PO SCH (08:10)
[2019-01-12] MEDS: CHOLECALCIFEROL (VITAMIN D3) 5,000 UNIT CAPSULE PO SCH (08:10)
[2019-01-12] MEDS: hydroCHLOROthiazide 25 MG TABLET PO SCH (08:10)
[2019-01-12] MEDS: LACTOBACILLUS RHAMNOSUS GG 1 CAPSULE. PO SCH (08:10)
[2019-01-12] MEDS: DOXAZOSIN MESYLATE 4 MG TABLET. PO SCH (08:11)
[2019-01-12] MEDS: PREGABALIN 50 MG CAPSULE PO SCH (08:11)
[2019-01-12 08:12] VITALS: BP 119/46
[2019-01-12] MEDS: LISINOPRIL 20 MG TABLET PO SCH (08:12)
[2019-01-12] MEDS: amLODIPine BESYLATE 5 MG TABLET PO SCH (08:12)
[2019-01-12] MEDS: traMADol 50 MG TABLET PO PRN (08:20)
--- NOTE | 2019-01-12 09:19 | PDOC ---
PROGRESS NOTES Subjective Subjective No new complaints. Objective Objective Vital Signs Date Time Temp Pulse Resp B/P (MAP) Pulse Ox O2 Delivery O2 Flow Rate FiO2 01/12/19 08:20 20 01/12/19 08:12 55 119/46 01/12/19 07:02 98.0 93 BiPAP/CPAP 98.0 01/10/19 22:15 2.0 Intake and Output 01/12/19 07:00 Intake Total 5180 ml Output Total 4925 ml Balance 255 ml Intake Oral 5180 ml Output Urine Total 4800 ml Drainage Total 125 ml # Voids 1 Physical Exam Physical Exam He is comfortable,sitting at edge of bed and he remains independent with his mobility at roller walker level and he had indwelling Hutchinson catheter in place. Plan Plan of Care Agree with discharge to home with out patient follow up by urology. Comment Review of Relevant I have reviewed the following items sebas (where applicable) has been applied. Labs Laboratory Tests Test 01/10/19 13:47 01/10/19 18:01 01/10/19 20:42 01/11/19 06:14 Glucose (Fingerstick) 98 mg/dL (70-99) 141 mg/dL (70-99) 195 mg/dL (70-99) 116 mg/dL (70-99) Test 01/11/19 11:30 01/11/19 16:34 01/12/19 06:27 Glucose (Fingerstick) 119 mg/dL (70-99) 100 mg/dL (70-99) 84 mg/dL (70-99) Laboratory Tests Test 01/11/19 11:30 01/11/19 16:34 01/12/19 06:27 Glucose (Fingerstick) 119 mg/dL (70-99) 100 mg/dL (70-99) 84 mg/dL (70-99) Medications Current Medications Bacitracin 62348 unit/Sodium Chloride 1,000 ml @ 1,000 mls/hr 1X ONCE IRR Last administered on 01/10/19at 12:52; Start 01/10/19 at 06:00; Stop 01/10/19 at 06:59; Status DC Vancomycin HCl 250 ml @ 250 mls/hr 1X PREOP PRN IV PRIOR TO PROCEDURE Last administered on 01/10/19at 11:55; Start 01/10/19 at 06:00; Stop 01/10/19 at 18:00 ; Status DC Ondansetron HCl (Zofran) 4 mg PRN Q6HRS PRN IV NAUSEA/VOMITING; Start 01/10/19 at 07:00; Stop 01/11/19 at 06:59; Status DC Fentanyl Citrate (Fentanyl 2ml Vial) 25 mcg PRN Q5MIN PRN IV MILD PAIN; Start 01/10/19 at 07:00; Stop 01/11/19 at 06:59; Status DC Fentanyl Citrate (Fentanyl 2ml Vial) 50 mcg PRN Q5MIN PRN IV MODERATE TO SEVERE PAIN Last administered on 01/10/19at 18:30; Start 01/10/19 at 07:00; Stop 01/11/19 at 06:59; Status DC Morphine Sulfate (Morphine Sulfate) 1 mg PRN Q10MIN PRN IV SEVERE PAIN; Start 01/10/19 at 07:00; Stop 01/11/19 at 06:59; Status DC Ringer's Solution 1,000 ml @ 30 mls/hr Q24H IV Last administered on 01/10/19at 10:42; Start 01/10/19 at 07:00; Stop 01/10/19 at 18:59; Status DC Hydromorphone HCl (Dilaudid) 0.5 mg PRN Q10MIN PRN IV SEV PAIN, Second choice; Start 01/10/19 at 07:00; Stop 01/11/19 at 06:59; Status DC Prochlorperazine Edisylate (Compazine) 5 mg PACU PRN PRN IV NAUSEA, MRX1; Start 01/10/19 at 07:00; Stop 01/11/19 at 06:59; Status DC Gelatin (Gelfoam Size 100) 1 each STK-MED ONCE .ROUTE Last administered on at 12:52; Start 01/10/19 at 05:50; Stop 01/10/19 at 06:50; Status DC Bupivacaine HCl/ Epinephrine Bitart (Sensorcain-Mpf Epi 0.5%-1:[id number]) 30 ml STK -MED ONCE .ROUTE Last administered on 01/10/19at 12:52; Start 01/10/19 at 05:50 ; Stop 01/10/19 at 06:50; Status DC Ketorolac Tromethamine (Toradol For Or Only) 60 mg STK-MED ONCE .ROUTE Last administered on 01/10/19at 12:52; Start 01/10/19 at 05:50; Stop 01/10/19 at 06:50 ; Status DC Thrombin 20,000 unit STK-MED ONCE TP Last administered on 01/10/19at 12:52; Start 01/10/19 at 05:50; Stop 01/10/19 at 06:50; Status DC Propofol 20 ml @ As Directed STK-MED ONCE IV ; Start 01/10/19 at 10:25; Stop at 10:26; Status DC Dexamethasone Sodium Phosphate (Decadron) 20 mg STK-MED ONCE .ROUTE ; Start at 10:25; Stop 01/10/19 at 10:26; Status DC Lidocaine HCl (Lidocaine Pf 2% Vial) 5 ml STK-MED ONCE .ROUTE ; Start 01/10/19 at 10:25; Stop 01/10/19 at 10:26; Status DC Ondansetron HCl (Zofran) 4 mg STK-MED ONCE .ROUTE ; Start 01/10/19 at 10:25; Stop 01/10/19 at 10:26; Status DC Rocuronium Bock (Zemuron) 50 mg STK-MED ONCE .ROUTE ; Start 01/10/19 at 10:25 ; Stop 01/10/19 at 10:26; Status DC Remifentanil HCl (Ultiva) 2 mg STK-MED ONCE IV ; Start 01/10/19 at 10:26; Stop 01/10/19 at 10:27; Status DC Propofol 100 ml @ As Directed STK-MED ONCE IV ; Start 01/10/19 at 09:28; Stop 01/10/19 at 10:29; Status DC Desflurane (Suprane) 90 ml STK-MED ONCE IH ; Start 01/10/19 at 10:44; Stop 01/10 at 10:45; Status DC Glycopyrrolate (Robinul) 1 mg STK-MED ONCE .ROUTE ; Start 01/10/19 at 10:44; Stop 01/10/19 at 10:45; Status DC Phenylephrine HCl (Slim-Synephrine Inj) 10 mg STK-MED ONCE .ROUTE ; Start at 10:45; Stop 01/10/19 at 10:46; Status DC Midazolam HCl (Versed) 2 mg STK-MED ONCE .ROUTE ; Start 01/10/19 at 11:37; Stop 01/10/19 at 11:38; Status DC Ephedrine Sulfate (ePHEDrine PF IN SALINE SYRINGE) 50 mg STK-MED ONCE IV ; Start 01/10/19 at 12:05; Stop 01/10/19 at 12:06; Status DC Dexamethasone Sodium Phosphate (Decadron) 20 mg STK-MED ONCE .ROUTE ; Start at 12:08; Stop 01/10/19 at 12:09; Status DC Epinephrine HCl (EPINEPHrine SYRINGE) 1 mg STK-MED ONCE .ROUTE ; Start 01/10/19 at 12:21; Stop 01/10/19 at 12:22; Status DC Phenylephrine HCl (Slim-Synephrine Inj) 10 mg STK-MED ONCE .ROUTE ; Start at 13:39; Stop 01/10/19 at 13:40; Status DC Remifentanil HCl (Ultiva) 2 mg STK-MED ONCE IV ; Start 01/10/19 at 14:14; Stop 01/10/19 at 14:15; Status DC Propofol 0 ml @ As Directed STK-MED ONCE IV ; Start 01/10/19 at 14:44; Stop at 14:45; Status DC Propofol 20 ml @ As Directed STK-MED ONCE IV ; Start 01/10/19 at 15:40; Stop at 15:41; Status DC Propofol 50 ml @ As Directed STK-MED ONCE IV ; Start 01/10/19 at 16:02; Stop at 16:03; Status DC Ketorolac Tromethamine (Toradol For Or Only) 30 mg STK-MED ONCE INJ ; Start at 16:46; Stop 01/10/19 at 16:47; Status DC Fentanyl Citrate (Fentanyl 2ml Vial) 100 mcg STK-MED ONCE .ROUTE ; Start at 16:48; Stop 01/10/19 at 16:49; Status DC Remifentanil HCl (Ultiva) 1 mg STK-MED ONCE IV ; Start 01/10/19 at 16:55; Stop 01/10/19 at 16:56; Status DC Amlodipine Besylate (Norvasc) 5 mg DAILY PO Last administered on 01/12/19 08: 12; Start 01/11/19 at 09:00 Aspirin (Ecotrin) 81 mg DAILY08 PO Last administered on 01/12/19 08:10; Start 01/11/19 at 08:00 Atorvastatin Calcium (Lipitor) 20 mg HS PO Last administered on 01/11/19 20:32 ; Start 01/10/19 at 21:00 EZETIMIBE (Zetia) 10 mg DAILY PO Last administered on 01/12/19 08:10; Start at 09:00 Hydrochlorothiazide (Hydrodiuril) 25 mg DAILY PO Last administered on 08:10; Start 01/11/19 at 09:00 Lisinopril (Prinivil) 40 mg DAILY PO Last administered on 01/12/19 08:12; Start 01/11/19 at 09:00 Vitamin D (Vitamin D3) 5,000 unit DAILY PO Last administered on 01/12/19 08:10 ; Start 01/11/19 at 09:00 Cyanocobalamin (Vitamin B-12) 2,500 mcg DAILY PO Last administered on 08:09; Start 01/11/19 at 09:00 Doxazosin Mesylate (Cardura) 4 mg BID PO Last administered on 01/12/19 08:11; Start 01/10/19 at 21:00 Duloxetine HCl (Cymbalta) 60 mg DAILY PO Last administered on 01/12/19 08:10; Start 01/11/19 at 09:00 Lactobacillus Rhamnosus (Culturelle) 1 cap BID PO Last administered on 08:10; Start 01/10/19 at 21:00 Magnesium Oxide (Magnesium Oxide) 400 mg DAILY PO Last administered on 08:09; Start 01/11/19 at 09:00 Metformin HCl (Glucophage) 1,000 mg BIDWMEALS PO Last administered on 08:08; Start 01/11/19 at 08:00 Fish Oil (Fish Oil) 1,000 mg BID PO Last administered on 01/12/19 08:10; Start 01/10/19 at 21:00 Polyethylene Glycol (miraLAX PACKET) 17 gm DAILY PO Last administered on at 08:09; Start 01/11/19 at 09:00 Fentanyl Citrate (Fentanyl 2ml Vial) 50 mcg PRN Q2HR PRN IV PAIN SEVERE Last administered on 01/11/19at 08:29; Start 01/10/19 at 17:00 Acetaminophen (Tylenol) 650 mg PRN Q6HRS PRN PO MILD PAIN / TEMP; Start at 17:00 Al Hydroxide/Mg Hydroxide (Mylanta Plus Xs) 30 ml PRN Q3HRS PRN PO HEARTBURN / GAS; Start 01/10/19 at 17:00 Calcium Carbonate/ Glycine (Tums) 500 mg PRN Q3HRS PRN PO INDIGESTION; Start at 17:00 Diphenhydramine HCl (Benadryl) 25 mg PRN Q6HRS PRN PO ITCHING; Start 01/10/19 at 17:00 Naloxone HCl (Narcan) 0.1 mg PRN Q2MIN PRN IV ADMIN; Start 01/10/19 at 17:00 Sodium Chloride (Normal Saline Flush) 3 ml QSHIFT PRN IV AFTER MEDS AND BLOOD DRAWS; Start 01/10/19 at 17:00 Potassium Chloride/Sodium Chloride 1,000 ml @ 75 mls/hr [id number] IV ; Start at 16:56; Stop 01/11/19 at 14:49; Status DC Oxycodone/ Acetaminophen (Percocet 5/325) 1 tab PRN Q4HRS PRN PO MILD PAIN, 1ST CHOICE Last administered on 01/10/19at 20:36; Start 01/10/19 at 17:00 Oxycodone/ Acetaminophen (Percocet 5/325) 2 tab PRN Q4HRS PRN PO MODERATE PAIN , SEVERE PAIN; Start 01/10/19 at 17:00 Methocarbamol (Robaxin) 750 mg TID PO Last administered on 01/12/19at 08:09; Start 01/10/19 at 21:00 Docusate Sodium (Colace) 100 mg BID PO Last administered on 01/12/19at 08:09; Start 01/10/19 at 21:00 Magnesium Hydroxide (Milk Of Magnesia) 2,400 mg PRN Q12HR PRN PO CONSTIPATION; Start 01/10/19 at 17:00 Fentanyl Citrate (Fentanyl 2ml Vial) 100 mcg STK-MED ONCE .ROUTE ; Start at 17:55; Stop 01/10/19 at 17:56; Status DC Fentanyl Citrate (Fentanyl 2ml Vial) 100 mcg STK-MED ONCE .ROUTE ; Start at 18:14; Stop 01/10/19 at 18:15; Status DC Pregabalin (Lyrica) 50 mg BID PO Last administered on 01/12/19at 08:11; Start at 11:30 Tramadol HCl (Ultram) 50 mg PRN Q6HRS PRN PO PAIN Last administered on at 08:20; Start 01/11/19 at 10:30 Active Scripts Active Reported Magnesium Oxide 400 Mg Tablet 400 Mg PO DAILY Vitamin B12 (Cyanocobalamin (Vitamin B-12)) 2,500 Mcg Tab.chew 2,500 Mcg PO DAILY Atorvastatin Calcium 20 Mg Tablet 20 Mg PO HS Miralax (Polyethylene Glycol 3350) 119 Gm Powder 17 Gm PO DAILY Zetia (Ezetimibe) 10 Mg Tablet 10 Mg PO DAILY [juice plus bid] Maysel-3 (Maysel-3 Fatty Acids) 1,000 Mg Capsule 1,000 Mg PO BID Metformin Hcl 1,000 Mg Tablet 1,000 Mg PO BIDWMEALS Lisinopril 40 Mg Tablet 40 Mg PO DAILY Hydrochlorothiazide Tablet (Hydrochlorothiazide) 25 Mg Tablet 25 Mg PO DAILY Doxazosin Mesylate 8 Mg Tablet 4 Mg PO BID Cymbalta (Duloxetine Hcl) 60 Mg Capsule.dr 60 Mg PO BID Vitamin D (Cholecalciferol (Vitamin D3)) 10,000 Unit Capsule 5,000 Unit PO DAILY Aspir 81 (Aspirin) 81 Mg Tablet.dr 1 Tab PO DAILY Amlodipine Besylate 5 Mg Tablet 5 Mg PO DAILY Probiotic (Lactobacillus Combo No.10) 1 Each Capsule 1 Each PO BID Vitals/I & O Vital Sign - Last 24 Hours 01/11/19 01/11/19 01/11/19 01/11/19 09:43 11:30 13:33 15:00 Temp 98.0 98.0 Pulse 64 Resp 14 B/P (MAP) 120/39 (66) O2 Delivery Room Air Room Air Room Air 01/11/19 01/11/19 01/11/19 01/11/19 18:14 20:13 20:32 20:33 Temp 97.8 97.8 Pulse 70 70 Resp 14 20 B/P (MAP) 126/55 (78) 126/55 Pulse Ox 94 O2 Delivery Room Air BiPAP/CPAP 01/11/19 01/11/19 01/12/19 01/12/19 21:30 23:19 03:00 07:02 Temp 98.0 98.0 Pulse 61 59 54 Resp 18 18 18 20 B/P (MAP) 121/56 (77) 95/43 (60) 102/41 (61) Pulse Ox 94 95 95 93 O2 Delivery Room Air BiPAP/CPAP BiPAP/CPAP BiPAP/CPAP 01/12/19 01/12/19 01/12/19 01/12/19 08:11 08:12 08:12 08:20 Pulse 55 55 55 Resp 20 B/P (MAP) 119/46 119/46 119/46 Intake and Output 01/11/19 01/11/19 01/12/19 15:00 23:00 07:00 Intake Total 5000 ml 180 ml Output Total 625 ml 650 ml 3650 ml Balance 4375 ml -470 ml -3650 ml RADHA HERNANDEZ MD Jan 12, 2019 09:19
[2019-01-12] MEDS ORDERED: PREG50CA PO (09:48)
[2019-01-12] MEDS ORDERED: DOCU-109 PO (09:48)
[2019-01-12] MEDS ORDERED: TRAM50TA PO (09:48)
--- NOTE | 2019-01-12 09:55 | DISCH ---
DISCHARGE INSTRUCTIONS Condition on Discharge Condition on Discharge: Stable Activity After Discharge Activity Instructions for Disc: Activity as tolerated, Avoid exertion, Walk in house, Other, see below Other activity instructions: use walker until released by : ambulation only exercise permitted gradu Bathing Instructions: Shower-keep dressing dry, No Tub Bath until see Lifting Instructions after Dis: No heavy lifting, No pulling or pushing, Do not lift >10 pounds Exercise Instruction after Dis: Progress as tolerated Driving Instructions after Dis: No driving for 2 weeks Weight Bearing Status after Di: No restrictions, Full weight bearing, As tolerated Diet after Discharge Diet after Discharge: No Added Sugar, Diabetic No Calorie Level Additional Diet Restrictions: resume home diet Diet Texture: Regular Liquid Texture: Thin Liquid Swallowing Supervision: None needed Wound Incision Care Wound/Incision Care: Ice to area for comfort, Keep wound/cast CDI, Change dressing Other wound/incision instructi: may shower 48 hr after surgery; no direct water , antibiotic cream/ointment Wound Care Equipment: Dressings Checks after Discharge DC Comment: increase fruits, vegetables and fiber attempt BM q2-3 days Contacting the after DC Call your doctor for: Concerns you may have Follow-Up Follow up with: follow up Dr. Posey on Tuesday for inés call [phone] for time Follow Up With: call [phone] for a 2 week post op appt with Dr. Babb/ [place] Treatment/Equipment after DC Adaptive Equipment Issued: None RAYMOND BABB MD Jan 12, 2019 09:55
--- NOTE | 2019-01-12 10:13 | PDOC ---
CHRIST ABRAMS LEAD ENGINEER 01/12/19 1013: SUBJECTIVE Subjective Doing well this am, catheter not bothering him. OBJECTIVE Objective Physical Exam: General appearance: Alert and Oriented Head: Normocephalic, without obvious abnormality Eyes: conjunctivae/corneas clear. PERRL, EOM's intact. Fundi benign Back: No CVA pain bilaterally Lungs: Regular respirations, non labored breathing Abdomen: soft, non-tender, obese. No masses, no organomegaly Pelvic: + Hutchinson in place draining clear yellow urine. Device in good working order. Vital Signs Vital Signs Date Time Temp Pulse Resp B/P (MAP) Pulse Ox O2 Delivery O2 Flow Rate FiO2 01/12/19 08:20 20 01/12/19 08:12 55 119/46 01/12/19 08:12 55 119/46 01/12/19 08:11 55 119/46 01/12/19 07:02 98.0 54 20 102/41 (61) 93 BiPAP/CPAP 98.0 01/12/19 03:00 59 18 95/43 (60) 95 BiPAP/CPAP 01/11/19 23:19 61 18 121/56 (77) 95 BiPAP/CPAP 01/11/19 21:30 18 94 Room Air 01/11/19 20:33 20 BiPAP/CPAP 01/11/19 20:32 70 126/55 01/11/19 20:13 Room Air 01/11/19 18:14 97.8 70 14 126/55 (78) 94 97.8 01/11/19 15:00 Room Air 01/11/19 13:33 Room Air 01/11/19 11:30 98.0 64 14 120/39 (66) 98.0 I & O Intake and Output 01/12/19 06:59 Intake Total 5180 ml Output Total 4925 ml Balance 255 ml Intake Oral 5180 ml Output Urine Total 4800 ml Drainage Total 125 ml # Voids 1 PHYSICAL EXAM Physical Exam Physical Exam: General appearance: Alert and Oriented Head: Normocephalic, without obvious abnormality Eyes: conjunctivae/corneas clear. PERRL, EOM's intact. Fundi benign Back: No CVA pain bilaterally Lungs: Regular respirations, non labored breathing Abdomen: soft, non-tender, obese. No masses, no organomegaly Pelvic: + Hutchinson in place draining clear yellow urine. Device in good working order. ASSESSMENT/PLAN Assessment/Plan Post operative urinary retention: Patient may resume doxazosin on discharge. Ok to go home with Hutchinson in place. A follow up appointment has been arranged for him to see Dr. Posey on 01/15/19 at 1050 am. Appointment card given to patient's family. All questions answered. Will sign off at this time, but please call with questions or changes in patient condition. Problems: (1) Urinary retention COMMENT Lab Laboratory Tests Test 01/11/19 11:30 01/11/19 16:34 01/12/19 06:27 Glucose (Fingerstick) 119 mg/dL (70-99) 100 mg/dL (70-99) 84 mg/dL (70-99) YULY FIERRO MD 01/14/19 0858: ASSESSMENT/PLAN Assessment/Plan Agree with assessment and plan. CHRIST ABRAMS APRN Jan 12, 2019 10:13 YULY FIERRO MD Jan 14, 2019 08:58
--- NOTE | 2019-01-12 11:30 | NUR ---
script called to pharmacy in [place]. here. instructed on dressing change and cleansing mickie with chlor prep daily after shower. removed Jourdan hose per request. reviewed written discharge instructions with patient and . reviewed restrictions to activities of daily living such as bathing, incisional care follow up with Dr. Vora. and Hutchinson care. both verbalized understanding of these instructions. dismissed to home and belongings
--- NOTE | 2019-01-12 11:30 | PDOC ---
PROGRESS NOTES Subjective Subjective POD #2 up in chair Pain well controlled Objective Objective Vital Signs Date Time Temp Pulse Resp B/P (MAP) Pulse Ox O2 Delivery O2 Flow Rate FiO2 01/12/19 08:20 20 01/12/19 08:12 55 119/46 01/12/19 08:00 Room Air 01/12/19 07:02 98.0 93 98.0 01/10/19 22:15 2.0 Intake and Output 01/12/19 07:00 Intake Total 5180 ml Output Total 4925 ml Balance 255 ml Intake Oral 5180 ml Output Urine Total 4800 ml Drainage Total 125 ml # Voids 1 Physical Exam General: Alert, Oriented X3, Cooperative MUSCULOSKELETAL: Other (LIN) Skin: Other (dressing C,D,I, flat) Plan Plan of Care ok to dc home with conte follow up in 2 weeks Comment Review of Relevant I have reviewed the following items sebas (where applicable) has been applied. Labs Laboratory Tests Test 01/10/19 13:47 01/10/19 18:01 01/10/19 20:42 01/11/19 06:14 Glucose (Fingerstick) 98 mg/dL (70-99) 141 mg/dL (70-99) 195 mg/dL (70-99) 116 mg/dL (70-99) Test 01/11/19 11:30 01/11/19 16:34 01/12/19 06:27 Glucose (Fingerstick) 119 mg/dL (70-99) 100 mg/dL (70-99) 84 mg/dL (70-99) Laboratory Tests Test 01/11/19 11:30 01/11/19 16:34 01/12/19 06:27 Glucose (Fingerstick) 119 mg/dL (70-99) 100 mg/dL (70-99) 84 mg/dL (70-99) Medications Current Medications Bacitracin 71210 unit/Sodium Chloride 1,000 ml @ 1,000 mls/hr 1X ONCE IRR Last administered on 01/10/19at 12:52; Start 01/10/19 at 06:00; Stop 01/10/19 at 06:59; Status DC Vancomycin HCl 250 ml @ 250 mls/hr 1X PREOP PRN IV PRIOR TO PROCEDURE Last administered on 01/10/19at 11:55; Start 01/10/19 at 06:00; Stop 01/10/19 at 18:00 ; Status DC Ondansetron HCl (Zofran) 4 mg PRN Q6HRS PRN IV NAUSEA/VOMITING; Start 01/10/19 at 07:00; Stop 01/11/19 at 06:59; Status DC Fentanyl Citrate (Fentanyl 2ml Vial) 25 mcg PRN Q5MIN PRN IV MILD PAIN; Start 01/10/19 at 07:00; Stop 01/11/19 at 06:59; Status DC Fentanyl Citrate (Fentanyl 2ml Vial) 50 mcg PRN Q5MIN PRN IV MODERATE TO SEVERE PAIN Last administered on 01/10/19at 18:30; Start 01/10/19 at 07:00; Stop 01/11/19 at 06:59; Status DC Morphine Sulfate (Morphine Sulfate) 1 mg PRN Q10MIN PRN IV SEVERE PAIN; Start 01/10/19 at 07:00; Stop 01/11/19 at 06:59; Status DC Ringer's Solution 1,000 ml @ 30 mls/hr Q24H IV Last administered on 01/10/19at 10:42; Start 01/10/19 at 07:00; Stop 01/10/19 at 18:59; Status DC Hydromorphone HCl (Dilaudid) 0.5 mg PRN Q10MIN PRN IV SEV PAIN, Second choice; Start 01/10/19 at 07:00; Stop 01/11/19 at 06:59; Status DC Prochlorperazine Edisylate (Compazine) 5 mg PACU PRN PRN IV NAUSEA, MRX1; Start 01/10/19 at 07:00; Stop 01/11/19 at 06:59; Status DC Gelatin (Gelfoam Size 100) 1 each STK-MED ONCE .ROUTE Last administered on at 12:52; Start 01/10/19 at 05:50; Stop 01/10/19 at 06:50; Status DC Bupivacaine HCl/ Epinephrine Bitart (Sensorcain-Mpf Epi 0.5%-1:[id number]) 30 ml STK -MED ONCE .ROUTE Last administered on 01/10/19at 12:52; Start 01/10/19 at 05:50 ; Stop 01/10/19 at 06:50; Status DC Ketorolac Tromethamine (Toradol For Or Only) 60 mg STK-MED ONCE .ROUTE Last administered on 01/10/19at 12:52; Start 01/10/19 at 05:50; Stop 01/10/19 at 06:50 ; Status DC Thrombin 20,000 unit STK-MED ONCE TP Last administered on 01/10/19at 12:52; Start 01/10/19 at 05:50; Stop 01/10/19 at 06:50; Status DC Propofol 20 ml @ As Directed STK-MED ONCE IV ; Start 01/10/19 at 10:25; Stop at 10:26; Status DC Dexamethasone Sodium Phosphate (Decadron) 20 mg STK-MED ONCE .ROUTE ; Start at 10:25; Stop 01/10/19 at 10:26; Status DC Lidocaine HCl (Lidocaine Pf 2% Vial) 5 ml STK-MED ONCE .ROUTE ; Start 01/10/19 at 10:25; Stop 01/10/19 at 10:26; Status DC Ondansetron HCl (Zofran) 4 mg STK-MED ONCE .ROUTE ; Start 01/10/19 at 10:25; Stop 01/10/19 at 10:26; Status DC Rocuronium [place] (Zemuron) 50 mg STK-MED ONCE .ROUTE ; Start 01/10/19 at 10:25 ; Stop 01/10/19 at 10:26; Status DC Remifentanil HCl (Ultiva) 2 mg STK-MED ONCE IV ; Start 01/10/19 at 10:26; Stop 01/10/19 at 10:27; Status DC Propofol 100 ml @ As Directed STK-MED ONCE IV ; Start 01/10/19 at 09:28; Stop 01/10/19 at 10:29; Status DC Desflurane (Suprane) 90 ml STK-MED ONCE IH ; Start 01/10/19 at 10:44; Stop 01/10 at 10:45; Status DC Glycopyrrolate (Robinul) 1 mg STK-MED ONCE .ROUTE ; Start 01/10/19 at 10:44; Stop 01/10/19 at 10:45; Status DC Phenylephrine HCl (Slim-Synephrine Inj) 10 mg STK-MED ONCE .ROUTE ; Start at 10:45; Stop 01/10/19 at 10:46; Status DC Midazolam HCl (Versed) 2 mg STK-MED ONCE .ROUTE ; Start 01/10/19 at 11:37; Stop 01/10/19 at 11:38; Status DC Ephedrine Sulfate (ePHEDrine PF IN SALINE SYRINGE) 50 mg STK-MED ONCE IV ; Start 01/10/19 at 12:05; Stop 01/10/19 at 12:06; Status DC Dexamethasone Sodium Phosphate (Decadron) 20 mg STK-MED ONCE .ROUTE ; Start at 12:08; Stop 01/10/19 at 12:09; Status DC Epinephrine HCl (EPINEPHrine SYRINGE) 1 mg STK-MED ONCE .ROUTE ; Start 01/10/19 at 12:21; Stop 01/10/19 at 12:22; Status DC Phenylephrine HCl (Slim-Synephrine Inj) 10 mg STK-MED ONCE .ROUTE ; Start at 13:39; Stop 01/10/19 at 13:40; Status DC Remifentanil HCl (Ultiva) 2 mg STK-MED ONCE IV ; Start 01/10/19 at 14:14; Stop 01/10/19 at 14:15; Status DC Propofol 0 ml @ As Directed STK-MED ONCE IV ; Start 01/10/19 at 14:44; Stop at 14:45; Status DC Propofol 20 ml @ As Directed STK-MED ONCE IV ; Start 01/10/19 at 15:40; Stop at 15:41; Status DC Propofol 50 ml @ As Directed STK-MED ONCE IV ; Start 01/10/19 at 16:02; Stop at 16:03; Status DC Ketorolac Tromethamine (Toradol For Or Only) 30 mg STK-MED ONCE INJ ; Start at 16:46; Stop 01/10/19 at 16:47; Status DC Fentanyl Citrate (Fentanyl 2ml Vial) 100 mcg STK-MED ONCE .ROUTE ; Start at 16:48; Stop 01/10/19 at 16:49; Status DC Remifentanil HCl (Ultiva) 1 mg STK-MED ONCE IV ; Start 01/10/19 at 16:55; Stop 01/10/19 at 16:56; Status DC Amlodipine Besylate (Norvasc) 5 mg DAILY PO Last administered on 01/12/19 08: 12; Start 01/11/19 at 09:00 Aspirin (Ecotrin) 81 mg DAILY08 PO Last administered on 01/12/19 08:10; Start 01/11/19 at 08:00 Atorvastatin Calcium (Lipitor) 20 mg HS PO Last administered on 01/11/19 20:32 ; Start 01/10/19 at 21:00 EZETIMIBE (Zetia) 10 mg DAILY PO Last administered on 01/12/19 08:10; Start at 09:00 Hydrochlorothiazide (Hydrodiuril) 25 mg DAILY PO Last administered on 08:10; Start 01/11/19 at 09:00 Lisinopril (Prinivil) 40 mg DAILY PO Last administered on 01/12/19 08:12; Start 01/11/19 at 09:00 Vitamin D (Vitamin D3) 5,000 unit DAILY PO Last administered on 01/12/19 08:10 ; Start 01/11/19 at 09:00 Cyanocobalamin (Vitamin B-12) 2,500 mcg DAILY PO Last administered on 08:09; Start 01/11/19 at 09:00 Doxazosin Mesylate (Cardura) 4 mg BID PO Last administered on 01/12/19 08:11; Start 01/10/19 at 21:00 Duloxetine HCl (Cymbalta) 60 mg DAILY PO Last administered on 01/12/19 08:10; Start 01/11/19 at 09:00 Lactobacillus Rhamnosus (Culturelle) 1 cap BID PO Last administered on 08:10; Start 01/10/19 at 21:00 Magnesium Oxide (Magnesium Oxide) 400 mg DAILY PO Last administered on 08:09; Start 01/11/19 at 09:00 Metformin HCl (Glucophage) 1,000 mg BIDWMEALS PO Last administered on 08:08; Start 01/11/19 at 08:00 Fish Oil (Fish Oil) 1,000 mg BID PO Last administered on 01/12/19 08:10; Start 01/10/19 at 21:00 Polyethylene Glycol (miraLAX PACKET) 17 gm DAILY PO Last administered on at 08:09; Start 01/11/19 at 09:00 Fentanyl Citrate (Fentanyl 2ml Vial) 50 mcg PRN Q2HR PRN IV PAIN SEVERE Last administered on 01/11/19at 08:29; Start 01/10/19 at 17:00 Acetaminophen (Tylenol) 650 mg PRN Q6HRS PRN PO MILD PAIN / TEMP; Start at 17:00 Al Hydroxide/Mg Hydroxide (Mylanta Plus Xs) 30 ml PRN Q3HRS PRN PO HEARTBURN / GAS; Start 01/10/19 at 17:00 Calcium Carbonate/ Glycine (Tums) 500 mg PRN Q3HRS PRN PO INDIGESTION; Start at 17:00 Diphenhydramine HCl (Benadryl) 25 mg PRN Q6HRS PRN PO ITCHING; Start 01/10/19 at 17:00 Naloxone HCl (Narcan) 0.1 mg PRN Q2MIN PRN IV ADMIN; Start 01/10/19 at 17:00 Sodium Chloride (Normal Saline Flush) 3 ml QSHIFT PRN IV AFTER MEDS AND BLOOD DRAWS; Start 01/10/19 at 17:00 Potassium Chloride/Sodium Chloride 1,000 ml @ 75 mls/hr [id number] IV ; Start at 16:56; Stop 01/11/19 at 14:49; Status DC Oxycodone/ Acetaminophen (Percocet 5/325) 1 tab PRN Q4HRS PRN PO MILD PAIN, 1ST CHOICE Last administered on 01/10/19at 20:36; Start 01/10/19 at 17:00 Oxycodone/ Acetaminophen (Percocet 5/325) 2 tab PRN Q4HRS PRN PO MODERATE PAIN , SEVERE PAIN; Start 01/10/19 at 17:00 Methocarbamol (Robaxin) 750 mg TID PO Last administered on 01/12/19at 08:09; Start 01/10/19 at 21:00 Docusate Sodium (Colace) 100 mg BID PO Last administered on 01/12/19at 08:09; Start 01/10/19 at 21:00 Magnesium Hydroxide (Milk Of Magnesia) 2,400 mg PRN Q12HR PRN PO CONSTIPATION; Start 01/10/19 at 17:00 Fentanyl Citrate (Fentanyl 2ml Vial) 100 mcg STK-MED ONCE .ROUTE ; Start at 17:55; Stop 01/10/19 at 17:56; Status DC Fentanyl Citrate (Fentanyl 2ml Vial) 100 mcg STK-MED ONCE .ROUTE ; Start at 18:14; Stop 01/10/19 at 18:15; Status DC Pregabalin (Lyrica) 50 mg BID PO Last administered on 01/12/19at 08:11; Start at 11:30 Tramadol HCl (Ultram) 50 mg PRN Q6HRS PRN PO PAIN Last administered on at 08:20; Start 01/11/19 at 10:30 Active Scripts Active Reported Magnesium Oxide 400 Mg Tablet 400 Mg PO DAILY Vitamin B12 (Cyanocobalamin (Vitamin B-12)) 2,500 Mcg Tab.chew 2,500 Mcg PO DAILY Atorvastatin Calcium 20 Mg Tablet 20 Mg PO HS Miralax (Polyethylene Glycol 3350) 119 Gm Powder 17 Gm PO DAILY Zetia (Ezetimibe) 10 Mg Tablet 10 Mg PO DAILY [juice plus bid] [place]-3 ([place]-3 Fatty Acids) 1,000 Mg Capsule 1,000 Mg PO BID Metformin Hcl 1,000 Mg Tablet 1,000 Mg PO BIDWMEALS Lisinopril 40 Mg Tablet 40 Mg PO DAILY Hydrochlorothiazide Tablet (Hydrochlorothiazide) 25 Mg Tablet 25 Mg PO DAILY Doxazosin Mesylate 8 Mg Tablet 4 Mg PO BID Cymbalta (Duloxetine Hcl) 60 Mg Capsule. 60 Mg PO BID Vitamin D (Cholecalciferol (Vitamin D3)) 10,000 Unit Capsule 5,000 Unit PO DAILY Aspir 81 (Aspirin) 81 Mg Tablet. 1 Tab PO DAILY Amlodipine Besylate 5 Mg Tablet 5 Mg PO DAILY Probiotic (Lactobacillus Combo No.10) 1 Each Capsule 1 Each PO BID Vitals/I & O Vital Sign - Last 24 Hours 01/11/19 01/11/19 01/11/19 01/11/19 11:30 13:33 15:00 18:14 Temp 98.0 97.8 98.0 97.8 Pulse 64 70 Resp 14 14 B/P (MAP) 120/39 (66) 126/55 (78) Pulse Ox 94 O2 Delivery Room Air Room Air 01/11/19 01/11/19 01/11/19 01/11/19 20:13 20:32 20:33 21:30 Pulse 70 Resp 20 18 B/P (MAP) 126/55 Pulse Ox 94 O2 Delivery Room Air BiPAP/CPAP Room Air 01/11/19 01/12/19 01/12/19 01/12/19 23:19 03:00 07:02 08:00 Temp 98.0 98.0 Pulse 61 59 54 Resp 18 18 20 B/P (MAP) 121/56 (77) 95/43 (60) 102/41 (61) Pulse Ox 95 95 93 O2 Delivery BiPAP/CPAP BiPAP/CPAP BiPAP/CPAP Room Air 01/12/19 01/12/19 01/12/19 01/12/19 08:11 08:12 08:12 08:20 Pulse 55 55 55 Resp 20 B/P (MAP) 119/46 119/46 119/46 Intake and Output 01/11/19 01/11/19 01/12/19 15:00 23:00 07:00 Intake Total 5000 ml 180 ml Output Total 625 ml 650 ml 3650 ml Balance 4375 ml -470 ml -3650 ml GIO COLMENARES APRN Jan 12, 2019 11:30
[2019-01-12] MEDS ORDERED: DOXA8TAB59 PO (15:58)
[2019-01-12] MEDS ORDERED: HYDR-2145 PO (15:58)
--- NOTE | 2019-01-13 03:14 | OP ---
DATE OF SURGERY: 01/10/2019 PREOPERATIVE DIAGNOSIS: Lumbar spinal stenosis L2, L3, L4, L5 with neurogenic claudication. POSTOPERATIVE DIAGNOSIS: Lumbar spinal stenosis L2, L3, L4, L5 with neurogenic claudication. OPERATION PERFORMED: Lumbar laminectomy L2 through L5. The operation was done with EMG monitoring, SSEP monitoring, fluoroscopy, microscopy, microscopic dissection. SURGEON: Jeremiah Meyer M.D. BALANCE TRUING INSPECTOR: ZARIA Randhawa assisted with the surgery. She assisted with the exposure, the multilevel laminectomy as well as the closure. OPERATIVE INDICATIONS: The patient is a very pleasant 73-year-old man who in the past has undergone surgery with a left direct laminectomy of the lumbar spine, combined with removal of a synovial cyst at T11-T12. He did well from that surgery, but has gradually deteriorated. On imaging studies, he has developed significant recurrent stenosis in the lumbar spine and I recommended an aggressive laminectomy extending from L2 through L5. He understood the surgery and risks. He understood the technique of the operation. He wished to go ahead. DESCRIPTION OF PROCEDURE: Following general endotracheal anesthesia, the patient was positioned prone on the Asaf table. Lumbar region prepped and draped in standard fashion. RAMANDEEP hose and AV impulse boots were applied for DVT prophylaxis. A microscope was draped. Fluoroscopy was draped and brought in the field. Monitoring was established. Vancomycin 1 gram was given prior to surgery. Using fluoroscopic guidance, an incision was made from L2 through L5. I dissected down skin and subcutaneous tissue, and reflected the paraspinal muscles bilaterally. There was considerable scar at the L2-L3, L3-L4 and to a lesser extent L4-L5 regions on the right hand side. On the left hand side, I was able to obtain an excellent exposure. I placed self-retaining retractors including Teto-Gelpi and Kam retractor and then I brought in the microscope and using the high speed air drill with a conical bur, I thinned the lamina from a right direct approach at L2, L3, L4 and L5. I trimmed away a portion of the spinous process at L2, L3 and L4 and I removed majority of the spinous process at L5 and thinned the bone on the contralateral side at that level. I then switched to a smaller nayana and again through the microscope, thinned the bone beginning at L2-L3. I drilled down to the ligamentum flavum. I worked across the midline and worked to the left side as far as I was able prior to reaching significant scarring. I was able to peel away the very thickened ligamentum flavum working superiorly, trimming the lamina to remove the majority of the lamina at L2, and especially from the mid body inferiorly of L2 crossing over the L2-L3 disc space and inferiorly from this point from L3. I worked inferiorly drilling and thinning the bone, trimming away thickened ligamentum flavum and carried complete laminectomy down to L5. I worked as far towards the left side as I was able, limited only by scar formation and then at L5, I removed much of the spinous process and worked across the midline at L4-L5 and fully decompressed this entire region aggressively. At this point, the dura had moved back very significantly. The ligamentum flavum had been removed from L2 through L5. There was a wide exposure. I carried the exposure to the pedicles on the left side and as far to the right side as I was able, limited only by the scar. The decompression was wide. The dura had moved back nicely. Hemostasis was excellent. I removed the retractor. I irrigated and coagulated and obtained excellent hemostasis in the muscle. Then, I closed the wound in multiple layers and the skin was closed with 4-0 subcuticular stitch. I did leave a drain just below the fascia and brought out through a separate stab incision. I did close the skin with skin mickie. The operation went very well and the patient was awakened uneventfully with excellent strength in his lower extremities. I was quite pleased with the surgery. JEREMIAH MEYER MD DR: ELEUTERIO/everardo JOB#: [id number] / [id number] MANOLO
--- NOTE | 2019-01-15 16:07 | PATHOLOGY ---
[facility] Accession Number: [id number] . 01 Material submitted: . LUMBAR DECOMPRESSION . 01 Clinical history: . Lumbar stenosis, radiculopathy . 02 Diagnosis: Segments of fibrocartilaginous, adipose, and skeletal muscle tissue and bone, lumbar decompression: - Degenerative changes of fibrocartilaginous tissue. (JPM:maty; 01/15/2019) QMS/01/15/2019 . 02 Comment: There is no evidence of an acute inflammatory process or malignancy. (JPM:maty; 01/15/2019) . 02 Electronically signed: . Stevo Aguilar MD, Pathologist NPI- [id number] . 01 Gross description: . Received in formalin labeled "Kris Cordero, lumbar decompression," are several pieces of glistening, fibrous tissue measuring 6.9 x 4.3 x 2.8 cm in aggregate dimensions, containing small fragments of possible bone. The tissue is submitted representatively in cassette A1, following decalcification. (TSD; 01/11/2019) TOB/TOB . 02 Pathologist provided ICD-10: M51.36 . 02 CPT . 346380, [id number] Specimen Comment: A courtesy copy of this report has been sent to Specimen Comment: [phone], . Specimen Comment: Report sent to / DR ARAYA Performed at: 01 [facility] [address], [place] [id number] MD Seferino Norris MD Phone: [phone] Performed at: 02 [facility] [address] [place], [place] [id number] MD Stevo Aguilar MD Phone: [phone]
--- NOTE | 2019-01-16 12:58 | RAD ---
EXAM: Lumbar spine, 11 views. HISTORY: Laminectomy. COMPARISON: 01/25/2017 FINDINGS: 11 fluoroscopic images of the lumbar spine were obtained for procedural guidance during laminectomy surgery. The images demonstrate multilevel degenerative endplate remodeling with disc space narrowing and osteophytosis and facet arthropathy. There is instrumentation overlying the posterior elements at the lumbar levels on the final images. The total fluoroscopy time is not provided with the images. IMPRESSION: Fluoroscopic imaging of the lumbar spine for surgical guidance during a reported lobectomy surgery. There is multilevel degenerative change throughout the lumbar spine. This is better characterized on the comparison radiographs. Electronically signed by: Carmen Tobin MD (01/16/2019 12:55 PM) [id number]
== END 2019-01-12 11:50 | disposition home or self-care (01) | DRG 516 ==
LOC: SURG 09:51 → 4 SOUTHEST 16:45 → OBSVTOIN 01-11 19:03
PROVIDERS: ADMIT Neurological Surgery; ATTEND Neurological Surgery
PROC: 5A09357 Assistance with Respiratory Ventilation, Less than 24 Consecutive Hours, Continuous Positive Airway Pressure (ICD-10-PCS; 2019-01-11)
PROC: 0T9B70Z Drainage of Bladder with Drainage Device, Via Natural or Artificial Opening (ICD-10-PCS; 2019-01-11)
PROC: 01NB0ZZ Release Lumbar Nerve, Open Approach (ICD-10-PCS; principal; 2019-01-12)
PROC: 4A11X4G Monitoring of Peripheral Nervous Electrical Activity, Intraoperative, External Approach (ICD-10-PCS; 2019-01-12)
PROC: 5A09357 Assistance with Respiratory Ventilation, Less than 24 Consecutive Hours, Continuous Positive Airway Pressure (ICD-10-PCS; 2019-01-12)
DX: M48.062 Spinal stenosis, lumbar region with neurogenic claudication (principal); Z68.41 Body mass index [BMI] 40.0-44.9, adult; M48.02 Spinal stenosis, cervical region; M48.04 Spinal stenosis, thoracic region; E11.9 Type 2 diabetes mellitus without complications; G47.30 Sleep apnea, unspecified; M54.16 Radiculopathy, lumbar region; M71.38 Other bursal cyst, other site; E66.9 Obesity, unspecified; I10 Essential (primary) hypertension; Z96.653 Presence of artificial knee joint, bilateral; Z85.46 Personal history of malignant neoplasm of prostate; Z95.1 Presence of aortocoronary bypass graft; Z83.3 Family history of diabetes mellitus; Z82.49 Family history of ischemic heart disease and other diseases of the circulatory system; Z82.0 Family history of epilepsy and other diseases of the nervous system; Z87.891 Personal history of nicotine dependence; Z88.0 Allergy status to penicillin; R33.9 Retention of urine, unspecified
CPT/HCPCS: 76000; 82962; 88304; 88311; A7015; G0378; G0379; J0171; J1100; J1885; J2001; J2250; J2405; J2704; J3010; J3370; J3490; J7030; J7120; 97110; 97116

== ENCOUNTER → 2019-03-14 | Outpatient (CLI) | payer MEDICARE, OTHER ==
[~2019-03-14] MED LIST changes: -BACITRACIN 50,000 UNIT in IV NORMAL SALINE 1000ML BAG 1,000 ML IRR ONE; -BUPIVAC MPF-EPI 0.5%-1:200000 30 ML VIAL. ONE; +DOXA8TAB59 PO; -GELATIN SPONGE SIZE 100. ONE; +HYDR-2145 PO; -HYDROmorphone 2 MG/ML VIAL IV PRN; -IV RINGERS,LACTATED 1000ML 1,000 ML IV SCH; -KETOROLAC 60 MG/2 ML INJ FOR OR. ONE; -MORPHINE SULFATE 2 MG/ML VIAL. IV PRN; -ONDANSETRON PF 4 MG/2 ML VIAL. IV PRN; +PREG50CA PO; -PROCHLORPERAZINE 10 MG/2 ML VIAL. IV PRN; -PROPOFOL 100 ML IV ONE; -THROMBIN TOPICAL 20,000 UNIT SPRAY.SYRN KIT TP ONE; +TRAM50TA PO; -VANCOMYCIN 1GM IVPB FOR OMNI 250 ML IV PRN; -fentaNYL PF VIAL 100 MCG/2 ML VIAL IV PRN
[2019-03-14 12:33] LABS: BASO % 1 % (0-3); EOS # 0.2 x10^3/uL (0.0-0.7); EOS % 3 % (0-3); HEMOGLOBIN 11.8 g/dL (13.0-17.5); LYMPH # 1.3 x10^3/uL (1.0-4.8); LYMPH % 20 % (24-48); MEAN CORPUSCULAR HEMOGLOBIN 29 pg (25-35); MEAN CORPUSCULAR HGB CONC 33 g/dL (31-37); MEAN CORPUSCULAR VOLUME 89 fL (79-100); MONO # 0.5 x10^3/uL (0.0-1.1); MONO % 9 % (0-9); NEUT # 4.4 x10^3uL (1.8-7.7); NEUT % 68 % (31-73); PLATELET COUNT 258 x10^3/uL (140-400); RED BLOOD COUNT 4.06 x10^6/uL (4.30-5.70); WHITE BLOOD COUNT 6.4 x10^3/uL (4.0-11.0)
[2019-03-14 12:56] LABS: ALBUMIN 3.6 g/dL (3.4-5.0); ALBUMIN/GLOBULIN RATIO 1.2 (1.0-1.7); CALCIUM 9.4 mg/dL (8.5-10.1); CREATININE 1.1 mg/dL (0.7-1.3); GFR 65.3; POTASSIUM 4.4 mmol/L (3.5-5.1); TOTAL BILIRUBIN 0.4 mg/dL (0.2-1.0); TOTAL PROTEIN 6.5 g/dL (6.4-8.2)
--- NOTE | 2019-03-14 13:55 | EKG ---
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
== END | disposition home or self-care (01) ==
LOC: SURGPAT 12:03
PROVIDERS: ATTEND Neurological Surgery
DX: Z01.818 Encounter for other preprocedural examination (principal); M47.12 Other spondylosis with myelopathy, cervical region; I45.10 Unspecified right bundle-branch block; I10 Essential (primary) hypertension; Z88.0 Allergy status to penicillin
CPT/HCPCS: 36415; 80053; 85025; 85610; 85730; 87641; 93005

== ENCOUNTER 2019-03-21 10:09 | Inpatient (IN) | payer MEDICARE, OTHER ==
[~2019-03-21] VITALS: Ht 177.8 cm; Wt 127.5 kg
[2019-03-21] VITALS (9 sets, daily range): BP systolic 126–138; BP diastolic 54–66
--- NOTE | 2019-03-21 09:37 | PREOP HP ---
DATE OF SERVICE: 03/21/2019 Kalyan Burgess, nurse practitioner, dictating for Dr. Jeremiah Meyer. DATE OF SURGERY: 03/21/2019. HISTORY OF PRESENT ILLNESS: The patient is a pleasant 73-year-old who 8 weeks ago underwent a laminectomy at L2 through L5. He notes his legs are feeling stronger. He still has problems with his balance. He has lost weight. He feels as though his lower extremity strength is improving. He does notice stiffness in his neck. He is currently working hard with physical therapy. He is sleeping well and has a good appetite. He is taking tramadol for pain. He ambulates with a cane or walker. PAST MEDICAL HISTORY: Artificial knees, prostate cancer, heart bypass, hypertension, radiation, shingles, sleep apnea and diabetes. PAST SURGICAL HISTORY: CABG in 2009, left knee replacement in 2012, right knee replacement in 2014, removal of synovial cyst T11-T12 and lumbar decompression L1 through L5 in 2016, lumbar laminectomy L2 through L5 in 12/2018. FAMILY HISTORY: Alzheimer's, diabetes, heart problems and disease and hypertension. SOCIAL HISTORY: Retired. . Exercises weekly. Denies substance abuse. Smoked 1 pack per day for 40 years, but quit greater than 10 years ago. Drinks alcohol 1-2 times per year. Drinks coffee daily. ALLERGIES: PENICILLIN. CURRENT MEDICATIONS: Ibuprofen, vitamin D, metformin, lisinopril, aspirin, hydrochlorothiazide, Colace, probiotic, amlodipine, doxazosin, Cymbalta, tramadol. REVIEW OF SYSTEMS: A 12-point review of systems was obtained and is noncontributory except for that mentioned above. PHYSICAL EXAMINATION: NEUROSURGERY EXAMINATION: GENERAL APPEARANCE: Alert, pleasant, no acute distress. HEAD: Normocephalic and atraumatic. SKIN: Warm and dry. Well-healed lumbar incision. MUSCULOSKELETAL: Cervical and lumbar paraspinal muscle bulk is normal, restricted range of motion of the cervical and lumbar spine. No tenderness of the lower lumbar spine with palpation. Mild tenderness of the posterior cervical region. Normal range of motion of the upper and lower extremities bilaterally. EXTREMITIES: No clubbing, cyanosis or edema. NEUROLOGIC: Alert and oriented x 3. Normal strength and remote memory. Strength 5/5 in bilateral upper and lower extremities. Sensory was intact to light touch in the upper and lower extremities bilaterally. Reflexes were present and symmetric in bilateral upper and lower extremities, negative straight leg raising bilaterally, unsteady gait. IMAGING: Reviewed. I reviewed his cervical MRI scan. On that study, there is significant cervical stenosis at C3-C4, C4-C5 and C5-C6. ASSESSMENT: 1. Other spondylosis with myelopathy, cervical region. 2. Spinal stenosis, cervical region. PLAN: Because he is making such a progress with regard to his lower extremity strength and weight loss program, I feel I would like to wait another 4 weeks before we embark in a cervical laminectomy. I did discuss a cervical laminectomy with him. I reviewed cervical spine films. He should undergo a cervical laminectomy from C3 through C6. I discussed this with him and also facet lateral mass fusion. He understands the risks and the expected postoperative course. He would like to go ahead. We will make the arrangements. JEREMIAH MEYER MD DR: ELEUTERIO/everardo JOB#: [id number] / [id number]
[~2019-03-21 10:09] MED LIST changes: +BACITRACIN 50,000 UNIT in IV NORMAL SALINE 1000ML BAG 1,000 ML IRR ONE; +BUPIVAC MPF-EPI 0.5%-1:200000 30 ML VIAL. ONE; +GELATIN SPONGE SIZE 12-7MM SPONGE. ONE; +HYDROmorphone 2 MG/ML VIAL IV PRN; +IV RINGERS,LACTATED 1000ML 1,000 ML IV SCH; +KETOROLAC 60 MG/2 ML INJ FOR OR. ONE; +LIDOCAINE 1% PF 2 ML VIAL. ID PRN; +ONDANSETRON PF 4 MG/2 ML VIAL. IV PRN; +PROCHLORPERAZINE 10 MG/2 ML VIAL. IV PRN; +PROPOFOL 100 ML IV ONE; +THROMBIN TOPICAL 20,000 UNIT SPRAY.SYRN KIT TP ONE; +fentaNYL PF VIAL 100 MCG/2 ML VIAL IV PRN
[2019-03-21] MEDS ORDERED: ceFAZolin SODIUM 3 GM in IV DEXTROSE 5% 100ML 100 ML IV PRN (10:30)
[2019-03-21] MEDS ORDERED: PROPOFOL 50 ML IV ONE (10:34)
[2019-03-21] MEDS ORDERED: DEXAMETHASONE SOD PHOS 20 MG/5 ML VIAL. ONE (10:34)
[2019-03-21] MEDS ORDERED: LIDOCAINE 2% PF 5 ML VIAL. ONE (10:34)
[2019-03-21] MEDS ORDERED: PROPOFOL 20 ML IV ONE (10:34)
[2019-03-21] MEDS ORDERED: ROCURONIUM 50 MG/5 ML VIAL. ONE (10:35)
[2019-03-21] MEDS ORDERED: fentaNYL PF VIAL 100 MCG/2 ML VIAL ONE ×3 (10:35→16:46)
[2019-03-21] MEDS ORDERED: REMIFENTANIL 2 MG VIAL. IV ONE ×2 (10:35→14:59)
[2019-03-21] MEDS ORDERED: PHENYLEPHRINE 10 MG/ML VIAL. ONE ×4 (10:36→15:38)
[2019-03-21] MEDS ORDERED: SUCCINYLCHOLINE 200 MG/10 ML VIAL. ONE (10:37)
[2019-03-21] MEDS ORDERED: GLYCOPYRROLATE 1 MG/5 ML VIAL. ONE (12:30)
[2019-03-21] MEDS ORDERED: ePHEDrine PF IN SALINE 50 MG/10 ML SYRINGE. IV ONE (12:31)
[2019-03-21] MEDS ORDERED: MIDAZOLAM HCL/PF 2 MG/2 ML VIAL. ONE (12:42)
[2019-03-21] MEDS ORDERED: ONDANSETRON PF 4 MG/2 ML VIAL. ONE (14:14)
[2019-03-21] MEDS ORDERED: GELATIN SPONGE SIZE 12-7MM SPONGE. ONE (14:18)
[2019-03-21] MEDS ORDERED: MAGNESIUM HYDROXIDE 2,400 MG/30 ML ORAL.SUSP. PO PRN (14:30)
[2019-03-21] MEDS ORDERED: DEXTROSE 50% 25 GM / 50ML DISP.SYRIN. IV PRN (14:30)
[2019-03-21] MEDS ORDERED: NALOXONE 0.4 MG/ML VIAL. IV PRN (14:30)
[2019-03-21] MEDS ORDERED: MAG HYDROX/ALUMINUM HYD/SIMETH 30 ML ORAL.SUSP PO PRN (14:30)
[2019-03-21] MEDS ORDERED: oxyCODONE/APAP 5/325 1 TAB TABLET PO PRN ×2 (14:30)
[2019-03-21] MEDS ORDERED: ACETAMINOPHEN 325 MG TABLET. PO PRN (14:30)
[2019-03-21] MEDS ORDERED: diphenhydrAMINE HCL 25 MG CAPSULE PO PRN (14:30)
[2019-03-21] MEDS ORDERED: 0.9 % SODIUM CHLORIDE 10 ML DISP.SYRIN. IV PRN (14:30)
[2019-03-21] MEDS ORDERED: CALCIUM CARBONATE 500 MG TAB.CHEW PO PRN (14:30)
[2019-03-21] MEDS ORDERED: traMADol 50 MG TABLET PO PRN (14:45)
[2019-03-21] MEDS ORDERED: DESFLURANE > 120 MINUTES IH ONE (15:38)
[2019-03-21] MEDS: fentaNYL PF VIAL 100 MCG/2 ML VIAL IV PRN ×5 (16:29→23:50)
[2019-03-21] MEDS ORDERED: MORPHINE SULFATE 2 MG/ML VIAL. ONE (16:53)
[2019-03-21] MEDS: MORPHINE SULFATE 2 MG/ML VIAL. IV PRN ×2 (16:56→17:07)
[2019-03-21] MEDS ORDERED: HYDROmorphone 2 MG/ML VIAL ONE (17:26)
[2019-03-21] MEDS: POTASSIUM CL 20MEQ-0.45% NACL 1,000 ML IV SCH (18:00)
[2019-03-21] MEDS: metFORMIN 500 MG TABLET PO SCH (18:19)
[2019-03-21] MEDS ORDERED: ceFAZolin SODIUM 1 GM in IV DEXTROSE 5% 50 ML IV SCH (19:00)
[2019-03-21] MEDS: HYDROcodone/APAP 5/325MG 1 TAB TABLET PO PRN (19:06)
[2019-03-21] MEDS: PREGABALIN 50 MG CAPSULE PO SCH (20:47)
[2019-03-21] MEDS: ATORVASTATIN CALCIUM 20 MG TABLET PO SCH (20:47)
[2019-03-21] MEDS: DOXAZOSIN MESYLATE 4 MG TABLET. PO SCH (20:48)
[2019-03-21] MEDS: OMEGA-3 FATTY ACIDS/FISH OIL 1,000 MG CAPSULE. PO SCH (20:48)
[2019-03-21] MEDS: DOCUSATE SODIUM 100 MG CAPSULE. PO SCH (20:48)
[2019-03-21] MEDS: ceFAZolin SODIUM IV Push 1 GM VIAL. IVP SCH (20:48)
[2019-03-21] MEDS: DULoxetine HCL 30 MG CAPSULE.DR PO SCH (20:48)
[2019-03-21] MEDS: METHOCARBAMOL 750 MG TABLET PO PRN (20:48)
[2019-03-21] MEDS: LACTOBACILLUS RHAMNOSUS GG 1 CAPSULE. PO SCH (20:48)
--- NOTE | 2019-03-21 21:51 | OP ---
DATE OF SURGERY: 03/21/2019 PREOPERATIVE DIAGNOSIS: Cervical spinal stenosis C3 through C6 with cervical myelopathy. POSTOPERATIVE DIAGNOSIS: Cervical spinal stenosis C3 through C6 with cervical myelopathy. OPERATION PERFORMED: Cervical laminectomy C3, C4, C5, C6; cervical lateral mass fusion with instrumentation C3, C4, C5, C6. The operation was done with multimodality monitoring including EMG, SSEP, motor evoked potentials as well as fluoroscopy, microscopic dissection. SURGEON: Jeremiah Meyer M.D. QUICK SERVICE TECHNICIAN: ZARIA Randhwaa assisted with the surgery. She assisted with the exposure, the laminectomy, the instrumentation as well as the closure. OPERATIVE INDICATIONS: The patient is a pleasant 73-year-old man who has had significant problems with both lumbar and thoracic and cervical spine stenosis. He recently underwent aggressive lumbar laminectomy and has done well from that. Now, he is prepared for a cervical laminectomy, he has been having difficulty with unsteadiness. I discussed with him the surgery, the risks, the technique and the expected postoperative course and he wished to go ahead. DESCRIPTION OF PROCEDURE: Following general endotracheal anesthesia, the patient was positioned prone in Muñoz pins. His cervical region was then prepped and draped in standard fashion. RAMANDEEP hose and AV impulse boots were applied for DVT prophylaxis. A microscope was draped. Fluoroscopy was draped and brought into the field. Monitoring was established. Ancef 3 grams was given prior to surgery. Using fluoroscopic guidance, a midline posterior incision was made. I dissected down the skin and subcutaneous tissue and I exposed the inferior aspect of C2 as well as C3, C4, C5, C6 and the upper C7. I reflected the paraspinal muscles laterally after finding an avascular plane and carrying the dissection down to the lamina and over the lateral masses. Self-retaining retractors were placed. I then made panel flow machine operator openings with a high speed air drill and the lateral masses of C3, C4, C5 and C6 bilaterally. I then using standard coordinates drilled and then tapped and placed 10 mm lateral mass screws in C3, C4, C5 and C6 bilaterally. The karl was placed of 70 mm and the nuts were applied and the system was torqued. Following this, I brought in the microscope and using high speed air drill, I drilled a trough on each side extending from the inferior 6 to superior 3. I cut away the ligament in the midline above and below at 2, 3 as well as 6, 7 and then gently freed up and lifted the spinal elements away. I had excoriated the facets and I packed allograft bone from the spinous process into these bilaterally. I irrigated copiously with antibiotic solution and had an excellent decompression. I obtained perfect hemostasis. I closed the muscle followed by the fascia followed by subcutaneous tissue in layers and the skin was closed with skin mickie. The patient was awakened and eventually taken to the recovery room in excellent condition. I was quite pleased with the surgery. JEREMIAH MEYER MD DR: ELEUTERIO/everardo JOB#: [id number] / [id number] MANOLO
--- NOTE | 2019-03-21 23:32 | NUR ---
stanley is ready for sleep. he has been rating his pain 6-9. he had been medicated with Lortab and tramadol. he was given a Robaxin at bedtime. he is complaining of pain left shoulder and right neck area. he has a slight oozing from a pin site right temporal area. dressing was changed x2 after cleaning with Chlor prep. Hutchinson is patent with shantel urine. dressing to posterior nape is dry and intact. cpap applied.
[2019-03-22 02:06] VITALS: BP 145/69
[2019-03-22] MEDS: fentaNYL PF VIAL 100 MCG/2 ML VIAL IV PRN ×2 (03:52→06:13)
[2019-03-22] MEDS: ceFAZolin SODIUM IV Push 1 GM VIAL. IVP SCH ×2 (03:54→13:32)
[2019-03-22 06:29] VITALS: BP 135/57
--- NOTE | 2019-03-22 06:33 | NUR ---
Zion has been painful throughout the night. he has been rating his pain 7-9. he is medicated with fentanyl x3 . has had ice on his neck area every 2-3 hrs.
[2019-03-22] MEDS: POTASSIUM CL 20MEQ-0.45% NACL 1,000 ML IV SCH (07:20)
[2019-03-22] MEDS: OMEGA-3 FATTY ACIDS/FISH OIL 1,000 MG CAPSULE. PO SCH ×2 (07:52→21:14)
[2019-03-22] MEDS: LACTOBACILLUS RHAMNOSUS GG 1 CAPSULE. PO SCH ×2 (07:52→21:12)
[2019-03-22] MEDS: POLYETHYLENE GLYCOL 3350 17 GM PACKET. PO SCH (07:52)
[2019-03-22] MEDS: CYANOCOBALAMIN (VITAMIN B-12) 1,000 MCG TABLET. PO SCH (07:52)
[2019-03-22] MEDS: DOXAZOSIN MESYLATE 4 MG TABLET. PO SCH ×2 (07:53→21:12)
[2019-03-22] MEDS: DULoxetine HCL 30 MG CAPSULE.DR PO SCH ×2 (07:53→21:14)
[2019-03-22] MEDS: DOCUSATE SODIUM 100 MG CAPSULE. PO SCH ×2 (07:53→21:12)
[2019-03-22] MEDS: amLODIPine BESYLATE 5 MG TABLET PO SCH (07:53)
[2019-03-22] MEDS: metFORMIN 500 MG TABLET PO SCH ×2 (07:53→15:46)
[2019-03-22] MEDS: LISINOPRIL 20 MG TABLET PO SCH (07:54)
[2019-03-22] MEDS: METHOCARBAMOL 750 MG TABLET PO PRN ×3 (07:55→21:13)
[2019-03-22] MEDS: hydroCHLOROthiazide 25 MG TABLET PO SCH (07:55)
[2019-03-22] MEDS: EZETIMIBE 10 MG TABLET. PO SCH (07:55)
[2019-03-22] MEDS: PREGABALIN 50 MG CAPSULE PO SCH ×2 (07:55→21:14)
[2019-03-22] MEDS: CHOLECALCIFEROL (VITAMIN D3) 5,000 UNIT CAPSULE PO SCH (07:55)
[2019-03-22] MEDS: HYDROcodone/APAP 5/325MG 1 TAB TABLET PO PRN ×4 (07:56→21:13)
[2019-03-22 11:00] VITALS: BP 122/63
--- NOTE | 2019-03-22 11:13 | PDOC ---
PROGRESS NOTES Subjective Subjective POD #1 S/P Cervical lami and fusion C3-6 up ambulating in alvarado incisional/ posterior neck pain, medications help Objective Objective Vital Signs Date Time Temp Pulse Resp B/P (MAP) Pulse Ox O2 Delivery O2 Flow Rate FiO2 03/22/19 08:56 Room Air 03/22/19 07:54 69 135/57 03/22/19 06:29 98.3 18 91 3.0 98.3 Intake and Output 03/22/19 06:59 Intake Total 3625 ml Output Total 1450 ml Balance 2175 ml Intake Oral 2525 ml IV Total 1100 ml Output Urine Total 1350 ml Estimated Blood Loss 100 ml Physical Exam General: Alert, Oriented X3, Cooperative MUSCULOSKELETAL: Other (LIN) Neuro: Normal speech Skin: Other (dressing C,D,I) Plan Plan of Care encouraged increased activity as tolerated PT keep conte in today possibly home tomorrow Comment Review of Relevant I have reviewed the following items sebas (where applicable) has been applied. Labs Laboratory Tests Test 03/21/19 16:19 03/21/19 20:40 03/22/19 06:58 Glucose (Fingerstick) 142 mg/dL (70-99) 177 mg/dL (70-99) 119 mg/dL (70-99) Laboratory Tests Test 03/21/19 16:19 03/21/19 20:40 03/22/19 06:58 Glucose (Fingerstick) 142 mg/dL (70-99) 177 mg/dL (70-99) 119 mg/dL (70-99) Medications Current Medications Bacitracin 19511 unit/Sodium Chloride 1,000 ml @ 1,000 mls/hr 1X ONCE IRR Last administered on 03/21/19at 13:15; Start 03/21/19 at 06:00; Stop 03/21/19 at 06:59; Status DC Ondansetron HCl (Zofran) 4 mg PRN Q6HRS PRN IV NAUSEA/VOMITING; Start 03/21/19 at 07:00; Stop 03/22/19 at 06:59; Status DC Fentanyl Citrate (Fentanyl 2ml Vial) 25 mcg PRN Q5MIN PRN IV MILD PAIN 1-3; Start 03/21/19 at 07:00; Stop 03/22/19 at 06:59; Status DC Fentanyl Citrate (Fentanyl 2ml Vial) 50 mcg PRN Q5MIN PRN IV MODERATE TO SEVERE PAIN Last administered on 03/21/19 17:01; Start 03/21/19 at 07:00; Stop 03/22/19 at 06:59; Status DC Morphine Sulfate (Morphine Sulfate) 1 mg PRN Q10MIN PRN IV SEVERE PAIN 7-10 Last administered on 03/21/19at 17:07; Start 03/21/19 at 07:00; Stop 03/22/19 at 06:59; Status DC Ringer's Solution 1,000 ml @ 30 mls/hr Q24H IV Last administered on 03/21/19 11:15; Start 03/21/19 at 07:00; Stop 03/21/19 at 18:59; Status DC Lidocaine HCl (Xylocaine-Mpf 1% 2ml Vial) 2 ml PRN 1X PRN ID PRIOR TO IV START; Start 03/21/19 at 07:00; Stop 03/22/19 at 06:59; Status DC Hydromorphone HCl (Dilaudid) 0.5 mg PRN Q10MIN PRN IV SEV PAIN, Second choice Last administered on 03/21/19 17:28; Start 03/21/19 at 07:00; Stop 03/22/19 at 06:59; Status DC Prochlorperazine Edisylate (Compazine) 5 mg PACU PRN PRN IV NAUSEA, MRX1; Start 03/21/19 at 07:00; Stop 03/22/19 at 06:59; Status DC Bupivacaine HCl/ Epinephrine Bitart (Sensorcain-Mpf Epi 0.5%-1:213150) 30 ml STK-MED ONCE .ROUTE Last administered on 03/21/19 13:15; Start 03/21/19 at 05:51; Stop 03/21/19 at 06:51; Status DC Gelatin (Gelfoam Size 12-7mm) 1 each STK-MED ONCE .ROUTE Last administered on 03/21/19 13:15; Start 03/21/19 at 05:51; Stop 03/21/19 at 06:51; Status DC Thrombin 20,000 unit STK-MED ONCE TP Last administered on 03/21/19 13:15; Start 03/21/19 at 05:51; Stop 03/21/19 at 06:52; Status DC Ketorolac Tromethamine (Toradol For Or Only) 60 mg STK-MED ONCE .ROUTE Last administered on 03/21/19at 13:15; Start 03/21/19 at 05:55; Stop 03/21/19 at 06:55; Status DC Cefazolin Sodium 3 gm/Dextrose 100 ml @ 200 mls/hr 1X PREOP PRN IV PRIOR TO PROCEDURE; Start 03/21/19 at 10:30; Stop 03/21/19 at 13:00; Status DC Propofol 20 ml @ As Directed STK-MED ONCE IV ; Start 03/21/19 at 10:34; Stop 03/21/19 at 10:35; Status DC Dexamethasone Sodium Phosphate (Decadron) 20 mg STK-MED ONCE .ROUTE ; Start 03/21/19 at 10:34; Stop 03/21/19 at 10:35; Status DC Lidocaine HCl (Lidocaine Pf 2% Vial) 5 ml STK-MED ONCE .ROUTE ; Start 03/21/19 at 10:34; Stop 03/21/19 at 10:35; Status DC Propofol 50 ml @ As Directed STK-MED ONCE IV ; Start 03/21/19 at 10:34; Stop 03/21/19 at 10:35; Status DC Fentanyl Citrate (Fentanyl 2ml Vial) 100 mcg STK-MED ONCE .ROUTE ; Start 03/21/19 at 10:35; Stop 03/21/19 at 10:36; Status DC Rocuronium [place] (Zemuron) 50 mg STK-MED ONCE .ROUTE ; Start 03/21/19 at 10:35; Stop 03/21/19 at 10:36; Status DC Remifentanil HCl (Ultiva) 2 mg STK-MED ONCE IV ; Start 03/21/19 at 10:35; Stop 03/21/19 at 10:36; Status DC Phenylephrine HCl (Slim-Synephrine Inj) 10 mg STK-MED ONCE .ROUTE ; Start 03/21/19 at 10:36; Stop 03/21/19 at 10:37; Status DC Succinylcholine Chloride (Anectine) 200 mg STK-MED ONCE .ROUTE ; Start 03/21/19 at 10:37; Stop 03/21/19 at 10:38; Status DC Propofol 100 ml @ As Directed STK-MED ONCE IV ; Start 03/21/19 at 09:41; Stop 03/21/19 at 10:41; Status DC Glycopyrrolate (Robinul) 1 mg STK-MED ONCE .ROUTE ; Start 03/21/19 at 12:30; Stop 03/21/19 at 12:31; Status DC Ephedrine Sulfate (ePHEDrine PF IN SALINE SYRINGE) 50 mg STK-MED ONCE IV ; Start 03/21/19 at 12:31; Stop 03/21/19 at 12:32; Status DC Midazolam HCl (Versed) 2 mg STK-MED ONCE .ROUTE ; Start 03/21/19 at 12:42; Stop 03/21/19 at 12:43; Status DC Ondansetron HCl (Zofran) 4 mg STK-MED ONCE .ROUTE ; Start 03/21/19 at 14:14; Stop 03/21/19 at 14:15; Status DC Amlodipine Besylate (Norvasc) 5 mg DAILY PO Last administered on 03/22/19at 07:53; Start 03/22/19 at 09:00 Atorvastatin Calcium (Lipitor) 20 mg HS PO Last administered on 03/21/19at 20:47; Start 03/21/19 at 21:00 EZETIMIBE (Zetia) 10 mg DAILY PO Last administered on 03/22/19at 07:55; Start 03/22/19 at 09:00 Hydrochlorothiazide (Hydrodiuril) 25 mg DAILY PO Last administered on 03/22/19at 07:55; Start 03/22/19 at 09:00 Lisinopril (Prinivil) 40 mg DAILY PO Last administered on 03/22/19at 07:54; Start 03/22/19 at 09:00 Pregabalin (Lyrica) 50 mg BID PO Last administered on 03/22/19at 07:55; Start 03/21/19 at 21:00 Vitamin D (Vitamin D3) 5,000 unit DAILY PO Last administered on 03/22/19at 07:55; Start 03/22/19 at 09:00 Cyanocobalamin (Vitamin B-12) 1,000 mcg DAILY PO Last administered on 03/22/19at 07:52; Start 03/22/19 at 09:00 Doxazosin Mesylate (Cardura) 4 mg BID PO Last administered on 03/22/19 07:53; Start 03/21/19 at 21:00 Duloxetine HCl (Cymbalta) 30 mg BID PO Last administered on 03/22/19 07:53; Start 03/21/19 at 21:00 Lactobacillus Rhamnosus (Culturelle) 1 cap BID PO Last administered on 03/22/19 07:52; Start 03/21/19 at 21:00 Metformin HCl (Glucophage) 1,000 mg BIDWMEALS PO Last administered on 03/22/19 07:53; Start 03/21/19 at 17:00 Fish Oil (Fish Oil) 1,000 mg BID PO Last administered on 03/22/19 07:52; Start 03/21/19 at 21:00 Polyethylene Glycol (miraLAX PACKET) 17 gm DAILY PO Last administered on 03/22/19 07:52; Start 03/22/19 at 09:00 Tramadol HCl (Ultram) 50 mg PRN Q6HRS PRN PO PAIN Last administered on 03/21/19at 18:19; Start 03/21/19 at 14:45 Fentanyl Citrate (Fentanyl 2ml Vial) 50 mcg PRN Q2HR PRN IV PAIN Last admin istered on 03/22/19 06:13; Start 03/21/19 at 14:30 Acetaminophen (Tylenol) 650 mg PRN Q6HRS PRN PO MILD PAIN / TEMP; Start 03/21/19 at 14:30 Al Hydroxide/Mg Hydroxide (Mylanta Plus Xs) 30 ml PRN Q3HRS PRN PO HEARTBURN / GAS; Start 03/21/19 at 14:30 Calcium Carbonate/ Glycine (Tums) 500 mg PRN Q3HRS PRN PO INDIGESTION; Start 03/21/19 at 14:30 Diphenhydramine HCl (Benadryl) 25 mg PRN Q6HRS PRN PO ITCHING; Start 03/21/19 at 14:30 Naloxone HCl (Narcan) 0.1 mg PRN Q2MIN PRN IV ADMIN; Start 03/21/19 at 14:30 Sodium Chloride (Normal Saline Flush) 3 ml QSHIFT PRN IV AFTER MEDS AND BLOOD DRAWS; Start 03/21/19 at 14:30 Potassium Chloride/Sodium Chloride 1,000 ml @ 75 mls/hr [id number] IV ; Start 03/21/19 at 18:00; Stop 03/22/19 at 08:02; Status DC Oxycodone/ Acetaminophen (Percocet 5/325) 1 tab PRN Q4HRS PRN PO MILD PAIN, 1ST CHOICE; Start 03/21/19 at 14:30; Stop 03/21/19 at 18:24; Status DC Oxycodone/ Acetaminophen (Percocet 5/325) 2 tab PRN Q4HRS PRN PO MODERATE PAIN, SEVERE PAIN; Start 03/21/19 at 14:30; Status Cancel Methocarbamol (Robaxin) 750 mg PRN TID PRN PO MUSCLE SPASMS Last administered on 03/22/19at 07:55; Start 03/21/19 at 14:30 Docusate Sodium (Colace) 100 mg BID PO Last administered on 03/22/19at 07:53; Start 03/21/19 at 21:00 Magnesium Hydroxide (Milk Of Magnesia) 2,400 mg PRN Q12HR PRN PO CONSTIPATION; Start 03/21/19 at 14:30 Cefazolin Sodium 1 gm/Dextrose 50 ml @ 100 mls/hr Q8H IV ; Start 03/21/19 at 19:00; Stop 03/22/19 at 11:29; Status UNV Dextrose (Dextrose 50%-Water Syringe) 12.5 gm PRN Q15MIN PRN IV SEE COMMENTS; Start 03/21/19 at 14:30 Remifentanil HCl (Ultiva) 2 mg STK-MED ONCE IV ; Start 03/21/19 at 14:59; Stop 03/21/19 at 15:00; Status DC Gelatin (Gelfoam Size 12-7mm) 1 each STK-MED ONCE .ROUTE Last administered on 03/21/19at 15:20; Start 03/21/19 at 14:18; Stop 03/21/19 at 15:19; Status DC Phenylephrine HCl (Slim-Synephrine Inj) 10 mg STK-MED ONCE .ROUTE ; Start 03/21/19 at 15:34; Stop 03/21/19 at 15:35; Status DC Phenylephrine HCl (Slim-Synephrine Inj) 10 mg STK-MED ONCE .ROUTE ; Start 03/21/19 at 15:38; Stop 03/21/19 at 15:39; Status DC Phenylephrine HCl (Slim-Synephrine Inj) 10 mg STK-MED ONCE .ROUTE ; Start 03/21/19 at 15:38; Stop 03/21/19 at 15:39; Status DC Desflurane (Suprane) 90 ml STK-MED ONCE IH ; Start 03/21/19 at 15:38; Stop 03/21/19 at 15:39; Status DC Fentanyl Citrate (Fentanyl 2ml Vial) 100 mcg STK-MED ONCE .ROUTE ; Start 03/21/19 at 16:26; Stop 03/21/19 at 16:27; Status DC Fentanyl Citrate (Fentanyl 2ml Vial) 100 mcg STK-MED ONCE .ROUTE ; Start 03/21/19 at 16:46; Stop 03/21/19 at 16:47; Status DC Morphine Sulfate (Morphine Sulfate) 2 mg STK-MED ONCE .ROUTE ; Start 03/21/19 at 16:53; Stop 03/21/19 at 16:54; Status DC Hydromorphone HCl (Dilaudid) 2 mg STK-MED ONCE .ROUTE ; Start 03/21/19 at 17:26; Stop 03/21/19 at 17:27; Status DC Cefazolin Sodium (Ancef) 1 gm Q8H IVP Last administered on 03/22/19at 03:54; Start 03/21/19 at 21:00; Stop 03/22/19 at 13:01 Acetaminophen/ Hydrocodone Bitart (Lortab 5/325) 2 tab PRN Q4HRS PRN PO PAIN Last administered on 03/22/19at 07:56; Start 03/21/19 at 18:30 Active Scripts Active Lyrica (Pregabalin) 50 Mg Capsule 50 Mg PO BID Tramadol Hcl 50 Mg Tablet 50 Mg PO PRN Q6HRS PRN Reported Vitamin B12 (Cyanocobalamin (Vitamin B-12)) 2,500 Mcg Tab.chew 1,000 Mcg PO DAILY Atorvastatin Calcium 20 Mg Tablet 20 Mg PO HS Miralax (Polyethylene Glycol 3350) 119 Gm Powder 17 Gm PO DAILY Zetia (Ezetimibe) 10 Mg Tablet 10 Mg PO DAILY [juice plus bid] Gaines-3 (Gaines-3 Fatty Acids) 1,000 Mg Capsule 1,000 Mg PO BID Metformin Hcl 1,000 Mg Tablet 1,000 Mg PO BIDWMEALS Lisinopril 40 Mg Tablet 40 Mg PO DAILY Hydrochlorothiazide Tablet (Hydrochlorothiazide) 25 Mg Tablet 25 Mg PO DAILY Doxazosin Mesylate 8 Mg Tablet 4 Mg PO BID Cymbalta (Duloxetine Hcl) 60 Mg Capsule. 30 Mg PO BID Vitamin D (Cholecalciferol (Vitamin D3)) 10,000 Unit Capsule 5,000 Unit PO DAILY Aspir 81 (Aspirin) 81 Mg Tablet. 1 Tab PO DAILY Amlodipine Besylate 5 Mg Tablet 5 Mg PO DAILY Probiotic (Lactobacillus Combo No.10) 1 Each Capsule 1 Each PO BID Vitals/I & O Vital Sign - Last 24 Hours 03/21/19 03/21/19 03/21/19 03/21/19 16:10 16:10 16:25 16:29 Temp 97.5 97.5 Pulse 72 72 Resp 14 14 14 B/P (MAP) 132/55 147/63 Pulse Ox 96 94 100 O2 Delivery Mask Simple Mask Simple Mask Simple Mask O2 Flow Rate 8 8 8 8.0 03/21/19 03/21/19 03/21/19 03/21/19 16:35 16:40 16:52 16:55 Pulse 72 72 Resp 14 12 14 14 B/P (MAP) 143/53 122/62 Pulse Ox 93 94 94 94 O2 Delivery Nasal Cannula Nasal Cannula Nasal Cannula Nasal Cannula O2 Flow Rate 4.0 4 4.0 4 03/21/19 03/21/19 03/21/19 03/21/19 16:56 17:01 17:07 17:10 Pulse 74 Resp 14 14 16 14 B/P (MAP) 140/60 Pulse Ox 94 93 93 94 O2 Delivery Nasal Cannula Nasal Cannula Nasal Cannula O2 Flow Rate 4.0 4.0 4.0 4 03/21/19 03/21/19 03/21/19 03/21/19 17:25 17:28 17:30 17:30 Temp 97.5 98.1 97.5 98.1 Pulse 72 72 Resp 14 14 20 B/P (MAP) 143/61 136/62 (86) Pulse Ox 93 94 95 O2 Delivery Nasal Cannula Nasal Cannula Nasal Cannula Nasal Cannula O2 Flow Rate 4 4.0 3.0 4 03/21/19 03/21/19 03/21/19 03/21/19 18:00 18:05 18:19 18:30 Temp 97.8 97.8 Pulse 70 73 Resp 20 B/P (MAP) 130/60 (83) 133/66 (88) Pulse Ox 95 96 O2 Delivery Nasal Cannula Nasal Cannula Nasal Cannula O2 Flow Rate 3.0 3.0 3.0 03/21/19 03/21/19 03/21/19 03/21/19 18:45 19:06 19:15 19:45 Temp 97.7 97.7 Pulse 75 77 76 Resp 18 20 18 18 B/P (MAP) 138/66 (90) 135/60 (85) 133/55 (81) Pulse Ox 92 93 92 96 O2 Delivery Nasal Cannula Nasal Cannula Nasal Cannula Nasal Cannula O2 Flow Rate 3.0 3.0 3.0 3.0 03/21/19 03/21/19 03/21/19 03/21/19 20:06 20:43 20:48 21:45 Pulse 81 70 77 Resp 18 18 B/P (MAP) 128/59 (82) 118/58 132/58 (82) Pulse Ox 94 97 O2 Delivery Nasal Cannula Nasal Cannula Nasal Cannula O2 Flow Rate 3.0 3.0 3.0 03/21/19 03/21/19 03/22/19 03/22/19 23:00 23:50 02:06 03:52 Temp 98.2 97.8 98.2 97.8 Pulse 78 66 Resp 18 18 B/P (MAP) 126/54 (78) 145/69 (94) Pulse Ox 94 92 O2 Delivery Nasal Cannula BiPAP/CPAP O2 Flow Rate 3.0 03/22/19 03/22/19 03/22/19 03/22/19 06:13 06:29 07:00 07:53 Temp 98.3 98.3 Pulse 69 69 Resp 20 18 B/P (MAP) 135/57 (83) 135/57 Pulse Ox 91 O2 Delivery Room Air Room Air Room Air O2 Flow Rate 3.0 03/22/19 03/22/19 03/22/19 03/22/19 07:53 07:54 07:56 08:15 Pulse 69 69 B/P (MAP) 135/57 135/57 O2 Delivery Room Air Room Air 03/22/19 08:56 O2 Delivery Room Air Intake and Output 6/5/19 6/5/19 6/6/19 14:59 22:59 06:59 Intake Total 2025 ml 1600 ml Output Total 800 ml 650 ml Balance 1225 ml 950 ml GIO COLMENARES RADIATION CONTROL WORKER Mar 22, 2019 11:13
[2019-03-22 15:00] VITALS: BP 134/64
[2019-03-22 18:58] VITALS: BP 112/64
[2019-03-22] MEDS: ATORVASTATIN CALCIUM 20 MG TABLET PO SCH (21:12)
[2019-03-22 23:00] VITALS: BP 121/66
[2019-03-23 03:00] VITALS: BP 153/72
[2019-03-23] MEDS: HYDROcodone/APAP 5/325MG 1 TAB TABLET PO PRN ×3 (03:50→11:14)
[2019-03-23 07:06] VITALS: BP 126/76
[2019-03-23 08:06] VITALS: BP 106/48
[2019-03-23] MEDS: OMEGA-3 FATTY ACIDS/FISH OIL 1,000 MG CAPSULE. PO SCH (08:09)
[2019-03-23] MEDS: DULoxetine HCL 30 MG CAPSULE.DR PO SCH (08:09)
[2019-03-23] MEDS: PREGABALIN 50 MG CAPSULE PO SCH (08:09)
[2019-03-23] MEDS: METHOCARBAMOL 750 MG TABLET PO PRN (08:09)
[2019-03-23] MEDS: metFORMIN 500 MG TABLET PO SCH (08:09)
[2019-03-23] MEDS: DOCUSATE SODIUM 100 MG CAPSULE. PO SCH (08:09)
[2019-03-23] MEDS: CHOLECALCIFEROL (VITAMIN D3) 5,000 UNIT CAPSULE PO SCH (08:10)
[2019-03-23] MEDS: EZETIMIBE 10 MG TABLET. PO SCH (08:10)
[2019-03-23] MEDS: LACTOBACILLUS RHAMNOSUS GG 1 CAPSULE. PO SCH (08:10)
[2019-03-23] MEDS: CYANOCOBALAMIN (VITAMIN B-12) 1,000 MCG TABLET. PO SCH (08:10)
[2019-03-23] MEDS: amLODIPine BESYLATE 5 MG TABLET PO SCH (08:13)
[2019-03-23] MEDS: DOXAZOSIN MESYLATE 4 MG TABLET. PO SCH (08:13)
[2019-03-23] MEDS: hydroCHLOROthiazide 25 MG TABLET PO SCH (08:13)
[2019-03-23] MEDS: POLYETHYLENE GLYCOL 3350 17 GM PACKET. PO SCH (08:14)
[2019-03-23] MEDS: LISINOPRIL 20 MG TABLET PO SCH (08:14)
[2019-03-23] MEDS ORDERED: HYDR-2761 PO (09:41)
[2019-03-23] MEDS ORDERED: METH750T2 PO (09:42)
--- NOTE | 2019-03-23 09:51 | DISCH ---
DISCHARGE INSTRUCTIONS Condition on Discharge Condition on Discharge: Stable Activity After Discharge Activity Instructions for Disc: Activity as tolerated, Avoid exertion, Walk in house, Other, see below Bathing Instructions: Shower-keep dressing dry, No Tub Bath until see Lifting Instructions after Dis: No heavy lifting, No pulling or pushing, Do not lift >10 pounds Exercise Instruction after Dis: Progress as tolerated Driving Instructions after Dis: No driving for 2 weeks Weight Bearing Status after Di: No restrictions, Full weight bearing, As tolerated Diet after Discharge Diet after Discharge: No Added Sugar, Diabetic No Calorie Level Additional Diet Restrictions: resume home diet Diet Texture: Regular Liquid Texture: Thin Liquid Swallowing Supervision: None needed Wound Incision Care Wound/Incision Care: Ice to area for comfort, Keep wound/cast CDI, Change dressing Other wound/incision instructi: may remove dressing when dry Wound Care Equipment: Dressings Contacting the after DC Call your doctor for: Concerns you may have Follow-Up Follow up with: Dr. Meyer's nurse in 2 weeks [phone] Treatment/Equipment after DC Adaptive Equipment Issued: None RAYMOND MEYER MD Mar 23, 2019 09:51
--- NOTE | 2019-03-23 10:10 | NUR ---
Hutchinson catheter discontinued without difficulty, provided with urinal and instructed to call for assistance
[2019-03-23 11:07] VITALS: BP 106/48
--- NOTE | 2019-03-23 11:53 | NUR ---
Discharged to home per w/c accompanied by spouse, see instruction sheet for details, belongings taken with him.
--- NOTE | 2019-03-23 19:55 | DS ---
DATE OF DISCHARGE: 03/23/2019 DISCHARGE DIAGNOSIS: Cervical spinal stenosis, C3 through C6 with cervical myelopathy. OPERATION PERFORMED: Cervical laminectomy C3, C4, C5, C6 with lateral mass fusion and instrumentation C3, C4, C5, C6. HISTORY OF PRESENT ILLNESS: The patient is a pleasant 73-year-old man who had significant problems with both lumbar, thoracic and cervical spinal stenosis. He recently underwent aggressive lumbar laminectomy and has done well from that. He has been having significant unsteadiness and is now ready for cervical laminectomy. I did discuss with him the surgery, the risk and the technique and expected postoperative course and he wished to go ahead. HOSPITAL COURSE: He was admitted to the floor postoperatively where he has done well. He has been up ambulating in the room and in the halls. Physical therapy was initiated and instruction was given to him regarding his activities. His pain is well controlled and he is in good condition to discharge home. DISCHARGE MEDICATIONS: He will resume his medications per the MRAD. DISCHARGE INSTRUCTIONS: He was instructed regarding incision care, activity restrictions and expectations for the next several weeks. He will follow up in our office in 2 weeks. He understands to call with any questions or concerns. RAYMOND MEYER MD DR: KAEL/everardo JOB#: [id number] / [id number]
--- NOTE | 2019-03-26 17:07 | PATHOLOGY ---
[facility] Accession Number: [id number] . 01 Material submitted: . vertebral column - CERVICAL DECOMPRESSION . 01 Clinical history: . Cervical stenosis . 02 Diagnosis: Posterior cervical laminectomy: - Segments of bone with attached fibroadipose, skeletal muscle, and fibrocartilaginous tissue showing focal degenerative changes. (JPM:maty; 03/26/2019) QMS/03/26/2019 . 02 Comment: There is no evidence of an acute inflammatory process or malignancy. . (JPM:maty; 03/26/2019) . 02 Electronically signed: . Stevo Aguilar MD, Pathologist NPI- [id number] . 01 Gross description: . The specimen is received in formalin, labeled "Kris Cordero, cervical disc compression", are multiple irregular fragments of hines and yellow and gritty tissue possibly admixed with bone spicule measuring 2.5 x 1.7 x 1.0 cm in aggregate. Also received is a hemorrhagic segment of vertebrae measuring 7.0 cm in length by 2.6 cm in width, sectioning reveals a hemorrhagic bone parenchyma. Metal Furniture Panel Coverer tissue is submitted as follows after decalcification. A1. Disc fragments. A2-A3. Vertebral segment. (SWS; 03/22/2019) SHS/SHS . 02 Pathologist provided ICD-10: M99.71 . 02 CPT . 159923, [id number] Specimen Comment: A courtesy copy of this report has been sent to Specimen Comment: [phone], . Specimen Comment: Report sent to / DR ARAYA Performed at: [address], [place], [place] [id number] MD Seferino Norris MD Phone: [phone] Performed at: [address] [id number] MD Stevo Aguilar MD Phone: [phone]
== END 2019-03-23 11:55 | disposition home or self-care (01) | DRG 472 ==
LOC: OPSVCIP 10:09 → 4 SOUTHEST 17:30
PROVIDERS: ADMIT Neurological Surgery; ATTEND Neurological Surgery
PROC: 4A11X4G Monitoring of Peripheral Nervous Electrical Activity, Intraoperative, External Approach (ICD-10-PCS; 2019-03-21)
PROC: 00NW0ZZ Release Cervical Spinal Cord, Open Approach (ICD-10-PCS; 2019-03-21)
PROC: 0RG20K1 Fusion of 2 or more Cervical Vertebral Joints with Nonautologous Tissue Substitute, Posterior Approach, Posterior Column, Open Approach (ICD-10-PCS; principal; 2019-03-21 11:30)
PROC: 5A09357 Assistance with Respiratory Ventilation, Less than 24 Consecutive Hours, Continuous Positive Airway Pressure (ICD-10-PCS; 2019-03-22)
PROC: 5A09357 Assistance with Respiratory Ventilation, Less than 24 Consecutive Hours, Continuous Positive Airway Pressure (ICD-10-PCS; 2019-03-23)
DX: M48.02 Spinal stenosis, cervical region (principal); M47.12 Other spondylosis with myelopathy, cervical region; E11.9 Type 2 diabetes mellitus without complications; G47.30 Sleep apnea, unspecified; I10 Essential (primary) hypertension; Z96.653 Presence of artificial knee joint, bilateral; Z82.49 Family history of ischemic heart disease and other diseases of the circulatory system; Z82.0 Family history of epilepsy and other diseases of the nervous system; Z83.3 Family history of diabetes mellitus; Z85.46 Personal history of malignant neoplasm of prostate; Z95.1 Presence of aortocoronary bypass graft; Z88.0 Allergy status to penicillin; Z79.899 Other long term (current) drug therapy
CPT/HCPCS: 36415; 76000; 82962; 86850; 86900; 86901; A7015; J0171; J0330; J0690; J1100; J1170; J1885; J2001; J2250; J2270; J2405; J2704; J3010; J3490; J7030; J7120; 97110; 97116; 97530; C1713